=== PATIENT | female | born 1955 | race Caucasian/White ===

== ENCOUNTER → 2023-07-24 11:09 | Outpatient (REF) | payer MEDICARE, BC, SELFPAY | LOC: RAD 11:09 | PROVIDERS: ATTENDING PHYSICIAN Internal Medicine; FAMILY PHYSICIAN Family Medicine; REFERRING PHYSICIAN Internal Medicine Endocrinology, Diabetes & Metabolism | DX: M81.0 Age-related osteoporosis without current pathological fracture (principal) | CPT/HCPCS: 74221 ==

== ENCOUNTER 2023-09-07 19:24 | Emergency (ER) | payer MEDICARE, BC, SELFPAY ==
[2023-09-07 19:27] VITALS: BP 158/93
[2023-09-07 20:16] LABS: % Basophils 0.2 % (0-2); % Eosinophils 0.2 % (0-6); % Immature Granulocytes 0.2 % (0-0.5); % Lymphocytes 22.1 % (20.5-51.1); % Monocytes 5.9 % (1.7-9.3); % Neutrophils 71.4 % (42.2-75.2); Absolute Lymphocytes 1.4 10^3/uL (1.2-3.4); Absolute Monocytes 0.4 10^3/uL (0.1-0.6); Absolute Neutrophils 4.5 10^3/uL (1.4-6.5); Hematocrit 40.4 % (37.0-47.0); Hemoglobin 14.3 g/dL (12.0-16.0); Mean Corp Hgb Conc. 35.4 g/dL (33.0-37.0); Mean Corpuscular Hgb 31.2 pg (27.0-31.0); Mean Corpuscular Volume 88.2 fL (81.0-99.0); Nucleated Red Blood Cells % 0 %; Platelet Count 288 10^3/uL (130-400); Red Blood Cell Count 4.58 10^6/uL (4.20-5.40); Red Cell Dist. Width 13.8 % (11.5-14.5); White Blood Cell Count 6.3 10^3/uL (4.8-10.8)
[2023-09-07 20:35] LABS: ALT (SGPT) 21 U/L (0-35); AST (SGOT) 25 U/L (14-36); Albumin 5.1 g/dl (3.5-5.0); Alkaline Phosphatase 68 U/L (38-126); Blood Urea Nitrogen 18 mg/dl (7-17); Calcium 9.8 mg/dl (8.4-10.2); Carbon Dioxide 19 mmol/L (22-30); Chloride 102 mmol/L (98-107); Glucose 124 mg/dl (70-99); Sodium 137 mmol/L (135-145); Total Bilirubin 0.7 mg/dl (0.2-1.3); Total Protein 7.4 g/dl (6.3-8.2); eGFR > 60.00
[2023-09-07 20:41] LABS: NT-proBNP 85.7 pg/ml; Troponin I < 0.012 ng/ml
[2023-09-07 20:50] VITALS: BMI 23.3
--- NOTE | 2023-09-07 21:21 | ED.GENMED ---
History of Present Illness
General
Chief Complaint: Breathing Problem
Source: patient
Time Seen by Provider: 09/07/23 21:03
History of Present Illness
History of Present Illness:
68-year-old female brought to the emergency room by her for evaluation of upper abdominal discomfort, belching, subjective feeling of dyspnea. She has also noticed that she has not had her normal level of clarity over the past couple weeks.
She does take medical marijuana but denies alcohol or any recreational drug use. She does have a history of fibromyalgia and does take gabapentin. No known fever.
Past History
Past History
ED Past Medical History: Other
Social History
Alcohol: Occasional
Phy Exam
Physical Exam
Physical Exam:
General: Awake, Alert, Oriented X3. Somewhat bizarre affect. She is very restless and has difficulty answering relatively simple questions. Her helps answer questions for her.
Vitals: unremarkable
Head: Atraumatic
Eyes: Pupils equal, EOMI
Throat: Airway intact, no exudates
Neck: Trachea midline
Lungs: Clear and equal b/l
Heart: Regular rate, no murmurs
Abd: Soft, Nontender, No pulsatile mass
Neuro: Cranial nerves intact, muscle strength equal bilaterally, cerebellar exam normal
Skin: Warm, dry, no rash
Extremities: pulses equal b/l, no edema
Scores
Heart Failure Risk
Heart Failure Risk Score: Not Applicable
Course
Orders/Labs/Results
Orders:
Orders
09/07/23 19:37
Electrocardiogram (*1) Urgent
Reason for Study: Other
Other Reason for Exam: Respiratory Distress
EKG- Treatment ONCE
09/07/23 19:57
Alcohol Urgent
Complete Blood Count/With Diff Urgent
Comprehensive Metabolic Panel Urgent
Lipase Urgent
Comment: ADD ON
NT-proBNP Urgent
TSH Reflex To Free T4 Urgent
Comment: ADD ON
Troponin I Urgent
09/07/23 21:15
CT Head W/o Iv Contrast Urgent
Comment:
Reason For Exam: mild confusion
09/07/23 21:18
Add On- LAB Urgent
Tests Added?: tsh w reflex T4, lipase, alcohol level
CR Chest - 2 Views Urgent
Comment:
Reason For Exam: short of breath
09/07/23 22:17
Urinalysis Reflex To Culture Urgent
Date Specimen was Collected: 09/07/23
Time Specimen was Collected: 22:11
Urine Microscopic Reflex Cult Urgent
09/08/23 00:51
Mag Hydrox/Al Hydrox/Simeth [Maalox] 30 ml Phenobarb/Hyoscy/Atropine/Scop [] 10 ml Viscous Lidocaine 2% [Xylocaine Viscous Cup] 10 ml PO NOW
09/08/23 00:56
Mag Hydrox/Al Hydrox/Simeth [Maalox] 30 ml .ROUTE .STK-MED ONE
Phenobarb/Hyoscy/Atropine/Scop [] 10 ml .ROUTE .STK-MED ONE
Viscous Lidocaine 2% [Xylocaine Viscous Cup] 15 ml .ROUTE .STK-MED ONE
09/08/23 02:39
Sucralfate [Carafate] 1 gram PO NOW STA
Abnormal Lab Results
09/07/23 09/07/23
19:57 22:17
MCH 31.2 H pg
(27.0-31.0)
MPV 11.0 H fL
(7.4-10.4)
Carbon Dioxide 19 L mmol/L
(22-30)
BUN 18 H mg/dl
(7-17)
Creatinine 0.5 L mg/dL
(0.6-1.0)
Glucose 124 H mg/dl
(70-99)
Albumin 5.1 H g/dl
(3.5-5.0)
Urine Ketones 3+ A
(Negative)
Ur Occult Blood Reflex Trace A
(Negative)
Urine RBC 3-6 A /HPF
(0-2)
Urine Bacteria (Reflex) Few A
(Negative)
09/07/23 19:57
09/07/23 19:57
Vital Signs
Initial and Last Documented VS:
Initial Vital Signs
Temp Pulse Resp BP Pulse Ox
97.8 F 82 28 158/93 99
09/07/23 19:27 09/07/23 19:27 09/07/23 19:27 09/07/23 19:27 09/07/23 19:27
Last Documented Vital Signs
Temp Pulse Resp BP Pulse Ox
98.1 F 78 18 140/89 100
09/08/23 02:56 09/08/23 02:56 09/08/23 02:56 09/08/23 02:56 09/08/23 02:56
*Radiology
Radiology exam reviewed: radiology read reviewed
*Pulse Oximetry
Patient hypoxic: no
*EKG
Interpreted by ED Provider?: Yes
Heart Rate: 79
Rate: normal
Rhythm: sinus
[place]: normal axis
Interval: normal interval
QRS Pattern: normal QRS
Ischemia: no ischemia
*Lpn Interpretation
Rate: normal
Interpretation: normal
Rhythm: sinus
*Critical Care Note
Total Time (30-74mins, 75-104mins- exclusive of procedures): Not Applicable
ED Attending Note
-
Portions of this chart may have been created with voice recognition software.� Occasional wrong word or��sound alike� substitutions may have occurred due to the inherent limitations of voice recognition software.
Discharge Plan
Departure
Patient Disposition: Home (Routine Discharge)
Date of Disposition: 09/08/23
Time of Disposition: 02:20
Patient with high blood pressure during this ER visit?: No
Condition: Good
Discharge Problem:
Dyspnea, Gastroesophageal reflux disease
Instructions: Shortness of breath, Acid reflux and GERD in adults
Prescriptions:
New
pantoprazole [Protonix] 40 mg tablet,delayed release (DR/EC)
40 mg PO DAILY Qty: 30 0RF
sucralfate [Carafate] 1 gram tablet
1 g PO ACHS Qty: 60 0RF
Referrals:
Katlyn Santana MD [Active] -
Jay Avila DO [Family Provider] -
Interventions
Interventions:
*Risk Screen - Suicide Last Done: 09/07/23 19:27
*General Assessment Last Done: 09/07/23 21:10
*Neglect/Abuse Screening Last Done: 09/07/23 21:06
ED- Fall Risk Assessment Last Done: 09/07/23 20:51
*Nursing Disposition Last Done: 09/08/23 02:58
ED- Cardiac Assessment Last Done: 09/07/23 20:51
ED- Pulmonary Assessment Last Done: 09/07/23 20:51
Discharge Date and Time
Discharge Date/Time: 09/08/23 03:01
Print Language: CITIZEN OF [place]
[2023-09-07 21:45] LABS: Alcohol None Detected; Lipase 70 U/L (23-300)
[2023-09-07 22:16] LABS: TSH Reflex To Free T4 1.22 uIU/ml (0.47-4.68)
[2023-09-07 22:25] LABS: Urine Albumin Trace (Neg - Trace); Urine Bilirubin Negative (Negative); Urine Character Clear (Clear); Urine Color Yellow; Urine Glucose Negative (Negative); Urine Ketone 3+ (Negative); Urine Leukocyte Negative (Negative); Urine Nitrite Negative (Negative); Urine Occult Blood Trace (Negative); Urine Specific Gravity 1.015 (<1.030); Urine Urobilinogen Negative (Neg - 1+); Urine pH 6.5 (5.0-9.0)
[2023-09-07 22:32] LABS: Urine Bacteria Few (Negative); Urine White Cell 0-2 /HPF (0-5)
[2023-09-07 23:13] VITALS: BP 145/83
[2023-09-08] MEDS: MAALOX 50 PO (00:58)
[2023-09-08 01:00] VITALS: BP 136/90
[2023-09-08] MEDS: CARAFATE 1 GRAM PO (02:52)
[2023-09-08 02:56] VITALS: BP 140/89
== END 2023-09-08 03:01 | disposition home or self-care (01) ==
LOC: EMR 19:24
PROVIDERS: Student in an Organized Health Care Education/Training Program; EMERGENCY PHYSICIAN Emergency Medicine; FAMILY PHYSICIAN Family Medicine
DX: R06.09 Other forms of dyspnea (principal); K21.9 Gastro-esophageal reflux disease without esophagitis; M79.7 Fibromyalgia
CPT/HCPCS: 99285; 70450; 71046; 80053; 81003; 81015; 82077; 83690; 83880; 84443; 84484; 85025; 93005

== ENCOUNTER 2023-11-14 06:50 | Inpatient (IN) | payer MEDICARE, BC, SELFPAY ==
[2023-11-13 21:00] VITALS: BP 188/97
--- NOTE | 2023-11-13 21:01 | ED.GENMED ---
History of Present Illness
General
Chief Complaint: Psychiatric Problem
Source: patient
Exam Limitations: none
Time Seen by Provider: 11/13/23 20:48
Nursing documentation reviewed up to this point in time: agreed with
History of Present Illness
History of Present Illness:
68-year-old female presents emergency ferment due to manic behavior. EMS was called by family. She has tangential speech and is talking very fast. She is mentioning famous actors.
Past History
Past History
ED Past Medical History: Other
ED Past Surgical History: Other
Social History
Alcohol: Occasional
Phy Exam
Physical Exam
Physical Exam:
Physical Exam
General: no apparent distress, not acutely ill
Neck: supple. no meningeal signs. normal posterior pharynx
Heart: s1/s2 regular rate and rhythm, no murmur. equal radial
pulses.
HEENT: Pupils equal round reactive to light, EOMI
Lungs: no acute respiratory distress. clear bilaterally
Abdomen: normal bowel sounds. not tender. no CVAT
Neuro: alert and oriented. no focal neurological deficits cranial nerves II through XII intact
Skin: no rash
Psychiatric: well kept. interactive and cooperative, tangential speech, flight of ideas, grandiosity
Extremities: no edema. no calf tenderness. negative homans. good distal pulses
Course
Orders/Labs/Results
Orders:
Orders
11/13/23 20:58
1:1 Observation - Suicide/ Violent Behavior As Directed
PSYCHIATRY CONSULT Routine
Consulting Provider: Talia Tavares
Was physician already notified: Yes
Reason for consult: manic episode
Urine Drug Abuse Screen Urgent
11/13/23 20:59
Crisis Consult Routine
Reason for Consult: manic episode
11/13/23 21:28
Acetaminophen Urgent
Alcohol Urgent
Complete Blood Count/With Diff Urgent
Comprehensive Metabolic Panel Urgent
Salicylate Urgent
Abnormal Lab Results
11/13/23
21:28
MPV 10.8 H fL
(7.4-10.4)
Lymphocytes % 19.7 L %
(20.5-51.1)
BUN 18 H mg/dl
(7-17)
Glucose 118 H mg/dl
(70-99)
Albumin 5.1 H g/dl
(3.5-5.0)
Salicylates < 1.0 L mg/dl
(2.0-20.0)
Acetaminophen < 10 L ug/ml
(10-30)
11/13/23 21:28
11/13/23 21:28
Vital Signs
Initial and Last Documented VS:
Initial Vital Signs
Temp Pulse Resp BP Pulse Ox
98.8 F 100 22 188/97 100
11/13/23 21:00 11/13/23 21:00 11/13/23 21:00 11/13/23 21:00 11/13/23 21:00
Last Documented Vital Signs
Temp Pulse Resp BP Pulse Ox
98.8 F 100 24 188/97 100
11/13/23 21:00 11/13/23 21:00 11/13/23 22:00 11/13/23 21:00 11/13/23 21:00
MDM/Problems Addressed
Differential Diagnosis Includes:
Manic episode
MDM/Problems Addressed:
68-year-old female with manic episode, 302 filed by family
*Pulse Oximetry
Patient hypoxic: no
*Critical Care Note
Total Time (30-74mins, 75-104mins- exclusive of procedures): Not Applicable
Patient Management
Social determinants of health affecting care: Living situation
Discussion with other providers: Cash Applications Representative (Crisis and psychiatry)
ED Attending Note
-
Portions of this chart may have been created with voice recognition software.� Occasional wrong word or��sound alike� substitutions may have occurred due to the inherent limitations of voice recognition software.
Discharge Plan
Departure
Patient Disposition: Psych Facility
Date of Disposition: 11/13/23
Time of Disposition: 22:23
Patient Status:: 302
Patient with high blood pressure during this ER visit?: Yes
Condition: Good
Discharge Problem:
Bipolar affective disorder, manic
Prescriptions:
No Action
pantoprazole [Protonix] 40 mg tablet,delayed release (DR/EC)
40 mg PO DAILY Qty: 30 0RF
sucralfate [Carafate] 1 gram tablet
1 g PO ACHS Qty: 60 0RF
Referrals:
UNKNOWN - PT DOES,NOT KNOW [Family Provider] -
Interventions
Interventions:
*Risk Screen - Suicide Last Done: 11/13/23 21:03
*General Assessment Last Done: 11/13/23 21:00
*Neglect/Abuse Screening Last Done: 11/13/23 21:03
ED- Fall Risk Assessment Last Done: 11/13/23 21:57
*ED COVID-19 Vaccine History Last Done: 11/13/23 21:00
ED-Psychological Assessment Last Done: 11/13/23 21:57
Discharge Date and Time
Print Language: KITTITIAN
[2023-11-13 21:40] LABS: % Basophils 0.1 % (0-2); % Eosinophils 0.1 % (0-6); % Immature Granulocytes 0.3 % (0-0.5); % Lymphocytes 19.7 % (20.5-51.1); % Monocytes 6.7 % (1.7-9.3); % Neutrophils 73.1 % (42.2-75.2); Absolute Lymphocytes 1.5 10^3/uL (1.2-3.4); Absolute Monocytes 0.5 10^3/uL (0.1-0.6); Absolute Neutrophils 5.4 10^3/uL (1.4-6.5); Hematocrit 38.5 % (37.0-47.0); Hemoglobin 13.5 g/dL (12.0-16.0); Mean Corp Hgb Conc. 35.1 g/dL (33.0-37.0); Mean Corpuscular Hgb 29.7 pg (27.0-31.0); Mean Corpuscular Volume 84.8 fL (81.0-99.0); Mean Platelet Volume 10.8 fL (7.4-10.4); Nucleated Red Blood Cells % 0 %; Platelet Count 290 10^3/uL (130-400); Red Blood Cell Count 4.54 10^6/uL (4.20-5.40); Red Cell Dist. Width 14.5 % (11.5-14.5); White Blood Cell Count 7.4 10^3/uL (4.8-10.8)
[2023-11-13 21:55] LABS: ALT (SGPT) 20 U/L (0-35); AST (SGOT) 27 U/L (14-36); Acetaminophen < 10 ug/ml (10-30); Albumin 5.1 g/dl (3.5-5.0); Alkaline Phosphatase 60 U/L (38-126); Blood Urea Nitrogen 18 mg/dl (7-17); Calcium 9.8 mg/dl (8.4-10.2); Carbon Dioxide 24 mmol/L (22-30); Chloride 100 mmol/L (98-107); Estimated Creatinine Clearance 50 ml/min; Glucose 118 mg/dl (70-99); Salicylate < 1.0 mg/dl (2.0-20.0); Sodium 141 mmol/L (135-145); Total Bilirubin 0.6 mg/dl (0.2-1.3); Total Protein 7.3 g/dl (6.3-8.2); eGFR > 60.00
[2023-11-13 21:57] LABS: Alcohol None Detected
[2023-11-13 22:50] LABS: Urine Albumin 1+ (Neg - Trace); Urine Bilirubin 1+ (Negative); Urine Character Clear (Clear); Urine Color Amber; Urine Glucose Negative (Negative); Urine Ketone 3+ (Negative); Urine Leukocyte Trace (Negative); Urine Nitrite Negative (Negative); Urine Occult Blood Trace (Negative); Urine Specific Gravity 1.025 (<1.030); Urine Urobilinogen Negative (Neg - 1+)
[2023-11-13 23:13] LABS: Amphetamines Negative (Negative); Barbiturates Negative (Negative); Marijuana Positive (Negative)
[2023-11-13 23:14] LABS: Benzodiazepines Negative (Negative); Buprenorphine Negative (Negative); Cocaine Negative (Negative); Methadone Negative (Negative); Methamphetamines Negative (Negative); Opiates Negative (Negative); Phencyclidine Negative (Negative); Tricyclic Antidepressants Negative (Negative)
[2023-11-13 23:18] LABS: Urine Bacteria Few (Negative); Urine Mucus Moderate; Urine Red Blood Cell 0-2 /HPF (0-2); Urine Squamous Cell 16-20 /LPF (Few)
[2023-11-14] VITALS (10 sets, daily range): BP systolic 96–146; BP diastolic 59–92
[2023-11-14 01:17] LABS: TSH 2.12 uIU/ml (0.47-4.68)
--- NOTE | 2023-11-14 05:59 | ED.ADDNOTE ---
ED Addendum
ED Addendum
ED Addendum Note:
Patient evaluated by myself. She is brought to the ED by her son and daughter with concern for change in mental status, agitation and confusion, new onset.
She does have history of depression, more so over the past month but no episodes of labile emotions, no previous episodes of sanchez, confusion.
Prior history of breast cancer, hypothyroidism, [id number] diabetes.
She does have medical marijuana card and remote history of alcohol use but no recent use and no other drug use.
Patient is awake and alert, quite agitated, pressured speech, somewhat nonsensical speech, follows a few simple commands.
She is afebrile. Mildly hypertensive.
Thin build but overall appears euvolemic.
No focal neurodeficits. No tremor. Neck is supple without meningismus.
Thus far labs are unremarkable. Urinalysis is not consistent with UTI. CT of the head is unremarkable. TSH is normal.
Urine drug screen positive only for THC consistent with history. EtOH is negative.
Concern for acute psychosis/sanchez versus metabolic encephalopathy.
Family filed 302 petition but this was declined by mental health delegate.
I placed a consult for telepsychiatry evaluation.
11/14/2023 0603 AM
Patient has been evaluated by psychiatrist whom I have spoken with. She does not believe patient's condition is psychiatric in nature and suspects a medical/metabolic disorder.
Patient continues with some agitation, pressured speech but remains confused. Able to follow some simple commands.
Psychiatrist recommends admitting medically for further evaluation, recommends MRI of the brain.
Will admit to hospitalist service.
--- NOTE | 2023-11-14 06:20 | EDRN ---
Daughter Sindy's phone number [phone]
--- NOTE | 2023-11-14 06:34 | HPS.HSE ---
Family Physician
-
Family Physician: NOT KNOW UNKNOWN - PT DOES
Chief Complaint
-
Mental Status Change
History of Present Illness
Patient is a 68y F with PMH significant for fibromyalgia, IBS, major depression and hypothyroidism who presents to ED for evaluation of mental status change. Patient brought to ED by her family who note agitation, confusion and hyperactivity
which is very new / acute. No known recent illness, med changes, etc per family. They received a call from a different family member to check on the patient and found her in this state.
Patient was home alone. her has been out of town for approximately 24 hours. One week ago, patient was normal and was caring for grandchildren, etc.
Patient was evaluated in the ED by telepsych who felt that this did not represent a primary psychiatric issue. Medical admission was recommended.
At the time of my examination patient is lying in he dark. She wakes promptly to verbal stimuli. She answers questions correctly (oriented x 3).
Once she begins speaking she does not stop and will continue to produce random thoughts, random words, vulgarities, etc.
She does not provide further insight into her condition however, When asked about any new meds, substance use / abuse, etc she responds vaguely / unhelpfully. 'I don't know, did I?' 'You would like to know, wouldn't you?'
Review of available records shows long history of establish major depression diagnosis per her PCP.
Over the past several months specifically the PCP has encourage formal psych evaluation and has even scheduled appointments for the patient. However, it appears that patient has not followed through on those appointments / recommendations.
Review of PDMP reveals prescriptions for clonazepam 0.5mg tablets from a [facility] in [place]. Two prescriptions for #270 pills each were filled in August and November 2022. A more recent prescription was filled 10/22/23.
External med Summary / PCP notes also indicate an ED visit in [place] in May 2023 for 'depression / anxiety'.
Medical History
Past Medical History
Past Medical History: Reports Other
Additional Past Medical History:
Right Breast Cancer
Hypothyroidism
Major Depression
Fibromyalgia
IBS
Past Surgical History: Reports Other
Additional Past Surgical History:
Right Lumpectomy (x 2)
Sinus Surgery
Thyroidectomy
Abdominal Surgery / Hernia Repair
Social History
Unable to obtain full social history at this time due to: Other (Patient answers unclear / unreliable. Family notes prior history of alcohol use - but none in some time.)
Drug: Other (Patient has medical marijuana card and uses marijuana pen regularly.)
Family History
Family History: Unable to Obtain
Allergies / Home Medications
Allergies reflects when Allergies were last updated in [facility].
Home Medications with original date entered in [facility]
Allergy/Medication List:
Allergies
Allergy/AdvReac Type Severity Reaction Status Date / Time
latex Allergy Rash Verified 11/13/23 21:08
Sulfa (Sulfonamide Allergy Unknown Verified 11/13/23 21:08
Antibiotics)
Home Medications
levothyroxine 100 mcg tablet (Synthroid) 100 mcg PO DAILY 11/14/23
metformin 500 mg tablet 500 mg PO DAILY 11/14/23
Med list seems incomplete (see PDMP inquiry). Formal med rec with pharmacy in AM would be beneficial.
Review of Systems
-
Unable to obtain full review of systems at this time due to: Other (Patient does not answer reliably.)
Physical Exam
Vital Signs
Vital Signs
Temp Pulse Resp BP Pulse Ox
98.8 F 87 20 143/72 99
11/13/23 21:00 11/14/23 06:20 11/14/23 06:20 11/14/23 06:20 11/14/23 06:20
Physical Exam
General: Other (68y F in lateral recumbent position. Opens eyes / answers questions when prompted - though not always appropriately.)
HEENT: Moist mucous membranes and PERRLA
Respiratory: Clear; No Wheezes, Rales or Rhonchi
Cardiac: S1/S2 and Regular Rhythm; No Murmur
GI: Soft, Non Tender, Non Distended and Normal Bowel Sounds
Musculoskeletal: No Clubbing, No Cyanosis and No Edema
Neuro: Other (Patient is able to answer orientation questions correctly. Otherwise pressured speech, profanity, flight of ideas.)
Laboratory Results
-
11/13/23 21:28
11/13/23 21:
Laboratory Results
Total Bilirubin 0.6 mg/dl (0.2-1.3) 11/13/23:28
AST 27 U/L (14-36) 11/13/23:
ALT 20 U/L (0-35) 11/13/23:28
Alkaline Phosphatase 60 U/L (38-126) 11/13/23:
Impression/Plan
-
A/P: Patient is a 68y F with PMH significant for breast cancer, hypothyroidism and major depression who presents to ED with her children for evaluation of mental status change.
Mental Status Change
- Admit for further evaluation and treatment.
- Patient is manic / hyperactive / pressured speech / inappropriate / etc. Abrupt change per family.
- (returning to town today) may be able to provide further insight.
- Note history of depression per PCP and specifically ED visit in May in [place] and recent discussion with PCP re: Psych evaluation.
- Labs and imaging in the ED are unremarkable. No clear metabolic anomaly / process to explain current symptoms.
- ? BZD withdrawal given Rx data in PDMP and current UDS (negative for benzos).
- Follow MSAS scale and treat with BZDs as needed for evident symptoms of withdrawal.
- Formal Psych evaluation here.
- Will check MRI brain for completeness.
- Follow for any changes in mental state / improved communication / etc.
- Additional history, formal med rec, etc will be helpful.
Hypothyroidism
- s/p thyroidectomy.
- Will hold T4 supplementation for now pending Free T4 assay.
Impaired Fasting Glucose
- Records indicate that patient was very recently started on metformin (10/09/23) for 'pre-diabetes'.
- Will hold this for now.
- Follow glucose and cover with SSI if needed.
- Check A1C.
History of Breast Cancer
- s/p lumpectomy x 2 - both in 2008.
DVT Prophylaxis: Lovenox
Code Status: Full
--- NOTE | 2023-11-14 07:30 | W.PN.HOSP.TC ---
Today's Communication/Plan
-
see A/P
Assessment / Plan
Assessment / Plan
HPI: 68 yo F with PMH significant for fibromyalgia, IBS, major depression and hypothyroidism who presented to ED for evaluation of mental status change. Patient brought to ED by her family who note agitation, confusion and hyperactivity which is
very new / acute. No known recent illness, med changes, etc per family. They received a call from a different family member to check on the patient and found her in this state.
Patient was home alone. her has been out of town for approximately 24 hours. One week ago, patient was normal and was caring for grandchildren, etc.
Patient was evaluated in the ED by telepsych who felt that this did not represent a primary psychiatric issue. Medical admission was recommended.
On exam, she answered questions correctly (oriented x 3).
Once she begins speaking she does not stop and will continue to produce random thoughts, random words, vulgarities, etc.
She does not provide further insight into her condition however, when asked about any new meds, substance use / abuse, etc she responds vaguely / unhelpfully. 'I don't know, did I?' 'You would like to know, wouldn't you?'
Review of available records shows long history of establish major depression diagnosis per her PCP.
Over the past several months specifically the PCP has encourage formal psych evaluation and has even scheduled appointments for the patient. However, it appears that patient has not followed through on those appointments / recommendations.
Review of PDMP reveals prescriptions for clonazepam 0.5mg tablets from a [facility] in [place]. Two prescriptions for #270 pills each were filled in August and November 2022. A more recent prescription was filled 10/22/23.
External med Summary / PCP notes also indicate an ED visit in [place] in May 2023 for 'depression / anxiety'.
A/P:
# Mental Status Change with sanchez / hyperactive and pressured speech. Abrupt change per family.
Note history of depression per PCP and specifically ED visit in May in [place] and recent discussion with PCP re: Psych evaluation.
Labs and imaging in the ED are unremarkable. No clear metabolic anomaly / process to explain current symptoms.
? BZD withdrawal given Rx data in PDMP and current UDS (negative for benzos).
Follow MSAS scale and treat with BZDs as needed for evident symptoms of withdrawal.
Formal Psych evaluation.
Will check MRI brain for completeness.
Follow for any changes in mental state / improved communication / etc.
Additional history, formal med rec, etc will be helpful.
# Hypothyroidism
s/p thyroidectomy.
TSH 2.12, check FT4
Would hold T4 supplementation for now pending Free T4 assay.
# Impaired Fasting Glucose
Records indicate that patient was very recently started on metformin (10/09/23) for 'pre-diabetes'.
Will hold this for now.
Follow glucose and cover with SSI if needed.
Check A1C.
# History of Breast Cancer s/p lumpectomy x 2 - both in 2008.
DVT Prophylaxis: Lovenox SQ
Code Status: Full
Anticipated Discharge: > 48 hours
Subjective/Interval History
-
Date of Service: November 14, 2023
Objective Data
-
Labs:
Laboratory Results
11/13/23
21:28
WBC 7.4
Hgb 13.5
Hct 38.5
Plt Count 290
Sodium 141
Potassium 4.0
Chloride 100
Carbon Dioxide 24
BUN 18 H
Creatinine 0.7
Glucose 118 H
Calcium 9.8
Total Bilirubin 0.6
AST 27
ALT 20
Alkaline Phosphatase 60
Vital Signs:
Vital Signs
Temp Pulse Resp BP Pulse Ox
37.1 C 87 20 143/72 99
11/13/23 21:00 11/14/23 06:20 11/14/23 06:20 11/14/23 06:20 11/14/23 06:20
Review of Systems
-
Unable to obtain full review of systems at this time due to: Acuity
Physical Exam
-
General: Well Developed, Well Nourished, No Apparent Distress, Comfortable and Conversant (pressured speech, tangential thought); Negative Respiratory Distress
HEENT: Normocephalic, Atraumatic, Nose Appears Normal and Ears Appear Normal; Negative Oxygen
Respiratory: Clear to Auscultation and Non Labored Respirations; Negative Accessory Resp Muscle Use
Cardiac: Regular Rhythm and S1/S2
GI: Soft, Nontender, Nondistended and Normal Bowel Sounds
Skin: Warm and Dry
Neuro: Awake
Psych: Calm; Negative Intact Judgement/Insight
Data Reviewed
-
Labs: Labs Reviewed by me
[2023-11-14 08:30] LABS: Free T4 1.99 ng/dl (0.78-2.19)
[2023-11-14 08:49] LABS: Glucose - Point of Care 104 mg/dl (70-99)
[2023-11-14] MEDS: ATIVAN 1 MG IV ×3 (09:31→23:00)
[2023-11-14] MEDS: FOLVITE 1 MG PO (09:31)
[2023-11-14] MEDS: THIAMINE INJECTION 200 MG IV ×2 (09:31→20:19)
[2023-11-14] MEDS: NSS 1000 IV ×2 (09:41→20:18)
--- NOTE | 2023-11-14 11:16 | PTCARENOTE ---
Patient admitted to IMU with diagnosis of mental status change. Patient was anxious, angry, restless, and hallucinating upon arrival to the unit. Patient was having visual hallucinations, one named Tony. Patient unable to answer questions, flight
of ideas. Refusing to answer questions about drug use at home. Patient on 1:1 for suicide as per doctors orders. Room assessed for safety, unnecessary equipment, cables removed from room. Patient is NPO at this time.
[2023-11-14 11:39] LABS: Glucose - Point of Care 90 mg/dl (70-99)
--- NOTE | 2023-11-14 14:01 | W.PN.UPDATE ---
Update Note
Progress Note Update
Psych attempted to see patient twice today. first this morning, she was sleeping and unable to cooperate with assessment and now she is at her MRI. will see her first in the morning. primary team notified. team can call me in the interim with
questions if needed.
--- NOTE | 2023-11-14 14:23 | PTCARENOTE ---
Patients MSAS has been 4-9 so far this shift. Patient has received two doses of IV Ativan 1mg. Patient was able to go to MRI with RN and 1:1. Patient stated that she did not want me to give information to daughter Sindy. Information was given to
for MRI clearance.
--- NOTE | 2023-11-14 15:58 | CM ---
CM to follow up with discharge planning assessment when appropriate.
[2023-11-14 16:44] LABS: Glucose - Point of Care 105 mg/dl (70-99)
[2023-11-14] MEDS: LOVENOX 40 MG SC (17:35)
--- NOTE | 2023-11-14 17:53 | PTCARENOTE ---
Patient is now calm, oriented to person, place and time. Eating dinner. Denying pain when asked. Patient talking to staff but has episodes of crying when she talks about family and her life. Patient stated that she doesnt want nurse to update her
children at this time, she will contact them when her comes to visit [facility].
--- NOTE | 2023-11-14 18:08 | PTCARENOTE ---
Patients necklace and two bracelets removed for MRI. All items placed in a ziplock bag and labeled with patient sticker. Placed in personal belongings bag that is in cabinet in patients room.
[2023-11-14] MEDS: ATIVAN 1 MG PO (20:39)
--- NOTE | 2023-11-14 20:40 | PTCARENOTE ---
Patient talking in circles. worried about her mother and brother 'bg'. Often talking about her , who was recently in another state. Pt spoken to in calm reassuring voice, encouraged to watch TV to help relax. MSAS maintained, pt given 1mg
PO Ativan for MSAS of 6. Suicide 1:1 maintained per MD orders.
[2023-11-14 21:01] LABS: Glucose - Point of Care 128 mg/dl (70-99)
[2023-11-14] MEDS: NSS (PRESERVATIVE FREE) 0.5 ML IV (23:00)
[2023-11-15] VITALS (13 sets, daily range): BP systolic 93–160; BP diastolic 50–109; BMI 18.3
[2023-11-15 05:24] LABS: Hematocrit 36.6 % (37.0-47.0); Hemoglobin 12.4 g/dL (12.0-16.0); Mean Corp Hgb Conc. 33.9 g/dL (33.0-37.0); Mean Corpuscular Hgb 29.6 pg (27.0-31.0); Mean Corpuscular Volume 87.4 fL (81.0-99.0); Mean Platelet Volume 11.3 fL (7.4-10.4); Platelet Count 263 10^3/uL (130-400); Red Blood Cell Count 4.19 10^6/uL (4.20-5.40); Red Cell Dist. Width 14.8 % (11.5-14.5); White Blood Cell Count 5.3 10^3/uL (4.8-10.8)
[2023-11-15 05:47] LABS: ALT (SGPT) 17 U/L (0-35); AST (SGOT) 27 U/L (14-36); Albumin 3.9 g/dl (3.5-5.0); Alkaline Phosphatase 35 U/L (38-126); Blood Urea Nitrogen 22 mg/dl (7-17); Calcium 8.8 mg/dl (8.4-10.2); Carbon Dioxide 26 mmol/L (22-30); Chloride 106 mmol/L (98-107); Direct Bilirubin 0.2 mg/dl (0.0-0.4); Estimated Creatinine Clearance 59 ml/min; Glucose 97 mg/dl (70-99); Potassium 4.8 mmol/L (3.5-5.1); Sodium 142 mmol/L (135-145); Total Bilirubin 0.5 mg/dl (0.2-1.3); eGFR > 60.00
[2023-11-15] MEDS: NSS 1000 IV (05:47)
--- NOTE | 2023-11-15 07:57 | W.PN.HOSP.TC ---
Today's Communication/Plan
-
see A/P
Assessment / Plan
Assessment / Plan
HPI: 68 yo F with PMH significant for fibromyalgia, IBS, major depression and hypothyroidism who presented to ED for evaluation of mental status change. Patient brought to ED by her family who note agitation, confusion and hyperactivity which is
very new / acute. No known recent illness, med changes, etc per family. They received a call from a different family member to check on the patient and found her in this state.
Patient was home alone. her has been out of town for approximately 24 hours. One week ago, patient was normal and was caring for grandchildren, etc.
Patient was evaluated in the ED by telepsych who felt that this did not represent a primary psychiatric issue. Medical admission was recommended.
On exam, she answered questions correctly (oriented x 3).
Once she begins speaking she does not stop and will continue to produce random thoughts, random words, vulgarities, etc.
She does not provide further insight into her condition however, when asked about any new meds, substance use / abuse, etc she responds vaguely / unhelpfully. 'I don't know, did I?' 'You would like to know, wouldn't you?'
Review of available records shows long history of establish major depression diagnosis per her PCP.
Over the past several months specifically the PCP has encourage formal psych evaluation and has even scheduled appointments for the patient. However, it appears that patient has not followed through on those appointments / recommendations.
Review of PDMP reveals prescriptions for clonazepam 0.5mg tablets from a [facility] in [place]. Two prescriptions for #270 pills each were filled in August and November 2022. A more recent prescription was filled 10/22/23.
External med Summary / PCP notes also indicate an ED visit in [place] in May 2023 for 'depression / anxiety'.
A/P:
# Mental Status Change with sanchez / hyperactive and pressured speech. Abrupt change per family.
Note history of depression per PCP and specifically ED visit in May in [place] and recent discussion with PCP re: Psych evaluation.
Labs and imaging in the ED are unremarkable. No clear metabolic anomaly / process to explain current symptoms.
? BZD withdrawal given Rx data in PDMP and current UDS negative for benzos.
Follow MSAS scale and treat with BZDs as needed for evident symptoms of withdrawal.
MRI brain unrevealing.
Pending formal Psych evaluation.
Follow for any changes in mental state / improved communication / etc.
# Hypothyroidism
s/p thyroidectomy.
TSH 2.12, FT4 at 1.99
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
# Impaired Fasting Glucose
Records indicate that patient was very recently started on metformin (10/09/23) for 'pre-diabetes'.
Will hold this for now.
Follow glucose and cover with SSI if needed.
Follow A1C.
# History of Breast Cancer s/p lumpectomy x 2 - both in 2008.
DVT Prophylaxis: Lovenox SQ
Code Status: Full
updated on the phone
Anticipated Discharge: 24 - 48 hours
Subjective/Interval History
-
Date of Service: November 15, 2023
Objective Data
-
Labs:
Laboratory Results
11/15/23
04:41
WBC 5.3
Hgb 12.4
Hct 36.6 L
Plt Count 263
Sodium 142
Potassium 4.8
Chloride 106
Carbon Dioxide 26
BUN 22 H
Creatinine 0.6
Glucose 97
Calcium 8.8
Total Bilirubin 0.5
AST 27
ALT 17
Alkaline Phosphatase 35 L
Vital Signs:
Vital Signs
Temp Pulse Resp BP Pulse Ox
36.9 C 105 17 117/99 99
11/15/23 02:59 11/15/23 06:00 11/15/23 06:00 11/15/23 06:00 11/15/23 06:00
I&O
11/14/23 11/15/23 11/16/23
06:59 06:59 06:59
Intake Total 2320 / 2320
Output Total 825 / 825
Balance 1495 / 1495
Review of Systems
-
All other systems: Reviewed and negative
Physical Exam
-
General: Well Developed, Well Nourished, No Apparent Distress, Comfortable and Conversant; Negative Respiratory Distress
HEENT: Normocephalic, Atraumatic, Nose Appears Normal and Ears Appear Normal; Negative Oxygen
Respiratory: Clear to Auscultation and Non Labored Respirations; Negative Accessory Resp Muscle Use
Cardiac: Regular Rhythm and S1/S2
GI: Soft, Nontender, Nondistended and Normal Bowel Sounds
Skin: Warm and Dry
Neuro: Awake
Psych: Calm
Data Reviewed
-
MRI: Report Reviewed by me
Labs: Labs Reviewed by me
--- NOTE | 2023-11-15 08:03 | PTCARENOTE ---
Pt AAOx3 NSS at 100ml hr. Maintained on 1:1. NSR. On RA at 96%. Awaiting Psych consult.
[2023-11-15 08:07] LABS: Glucose - Point of Care 94 mg/dl (70-99)
[2023-11-15] MEDS: SYNTHROID 100 MCG PO (08:48)
[2023-11-15] MEDS: THIAMINE INJECTION 200 MG IV ×2 (08:48→19:16)
[2023-11-15] MEDS: FOLVITE 1 MG PO (08:48)
--- NOTE | 2023-11-15 09:33 | PTOTSP ---
SPEECH THERAPY SWALLOW EVALUATION:
Patient exhibits grossly functional oropharyngeal swallow at this time. No history of dysphagia noted. Patient remains at risk for aspiration given confusion. Currently breathing comfortably on room air, WBC WNL. No CXR available. Recommend Regular
texture solids, thin liquids. Medications whole with liquid, one at a time. General aspiration precautions. Skilled ST services for swallow therapy are not indicated at this time.
Patient exhibits impaired cognitive communication skills including deficits in attention and insight. MRI currently negative for acute findings. ST to follow and complete Cognitive Communication evaluation, pending formal Psych Evaluation.
RECOMMEND:
1) Regular texture diet, thin liquids
2) Medications whole with liquid, one at a time
3) General aspiration precautions
4) No skilled ST services for swallow therapy are indicated at this time; ST to follow for Cognitive Communication Evaluation pending formal Psych Evaluation
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
[2023-11-15 12:59] LABS: Glycohemoglobin (HgbA1c) 5.7 % (4.0-5.6)
[2023-11-15] MEDS: NEURONTIN 300 MG PO (14:01)
[2023-11-15 15:19] LABS: Glucose - Point of Care 139 mg/dl (70-99)
[2023-11-15] MEDS: NSS IV (16:09)
[2023-11-15 17:08] LABS: Glucose - Point of Care 110 mg/dl (70-99)
[2023-11-15] MEDS: LOVENOX 40 MG SC (17:58)
--- NOTE | 2023-11-15 18:35 | PTCARENOTE ---
Tech sitting with 1:1 stated pt eluded to sucidal ideation she said 'If I really wanted to I know how I would' partner asked 'would what' . Pt stared ranting about everything. Pt talks about everything and anything some things make no sense
--- NOTE | 2023-11-15 19:25 | PTCARENOTE ---
Pt resting comfortably in bed, presents with rambling speech. Pt goes from tearful to laughing very quickly and does not seem to wait for response before continuing the conversation. Pt c/o generalized pain which she says in d/t fibromyalgia. Pt
tearfully states 'I guess I didn't realize how much the marijuana was helping my pain', but quickly moves on from the topic to plainly state that her she has 'always been a hypochondriac.' 1:1 present to ensure patient safety. IV patent in R
forearm. VSS at this time.
[2023-11-15] MEDS: NEURONTIN 600 MG PO (21:13)
[2023-11-15] MEDS: ABILIFY 5 MG PO (21:13)
[2023-11-15 22:03] LABS: Glucose - Point of Care 120 mg/dl (70-99)
[2023-11-16] VITALS (8 sets, daily range): BP systolic 131–172; BP diastolic 60–101; BMI 18.1
--- NOTE | 2023-11-16 00:24 | PTCARENOTE ---
Pt requesting ativan to 'get an hour of sleep'. This RN educated pt that ativan is not ordered for sleep. Pt does not meet MSAS criteria to receive ativan at this time. When questioned about usual sleep habits, pt states that she does not usually
sleep until 6am as this is 'her pattern'.
[2023-11-16] MEDS: SYNTHROID 100 MCG PO (06:33)
[2023-11-16] MEDS: THIAMINE INJECTION 200 MG IV ×2 (08:04→21:01)
[2023-11-16] MEDS: NEURONTIN 300 MG PO (08:04)
[2023-11-16] MEDS: FOLVITE 1 MG PO (08:04)
[2023-11-16 08:09] LABS: Glucose - Point of Care 112 mg/dl (70-99)
--- NOTE | 2023-11-16 09:35 | W.PN.HOSP.TC ---
Today's Communication/Plan
-
Stable for MedSurg
Assessment / Plan
Assessment / Plan
HPI: 68 yo F with PMH significant for fibromyalgia, IBS, major depression and hypothyroidism who presented to ED for evaluation of mental status change. Patient brought to ED by her family who note agitation, confusion and hyperactivity which is
very new / acute. No known recent illness, med changes, etc per family. They received a call from a different family member to check on the patient and found her in this state.
Patient was home alone. her has been out of town for approximately 24 hours. One week ago, patient was normal and was caring for grandchildren, etc.
Patient was evaluated in the ED by telepsych who felt that this did not represent a primary psychiatric issue. Medical admission was recommended.
On exam, she answered questions correctly (oriented x 3).
Once she begins speaking she does not stop and will continue to produce random thoughts, random words, vulgarities, etc.
She does not provide further insight into her condition however, when asked about any new meds, substance use / abuse, etc she responds vaguely / unhelpfully. 'I don't know, did I?' 'You would like to know, wouldn't you?'
Review of available records shows long history of establish major depression diagnosis per her PCP.
Over the past several months specifically the PCP has encourage formal psych evaluation and has even scheduled appointments for the patient. However, it appears that patient has not followed through on those appointments / recommendations.
Review of PDMP reveals prescriptions for clonazepam 0.5mg tablets from a [facility] in [place]. Two prescriptions for #270 pills each were filled in August and November 2022. A more recent prescription was filled 10/22/23.
External med Summary / PCP notes also indicate an ED visit in [place] in May 2023 for 'depression / anxiety'.
A/P:
# Mental Status Change with sanchez / hyperactive and pressured speech. Abrupt change per family.
Note history of depression per PCP and specifically ED visit in May in [place] and recent discussion with PCP re: Psych evaluation.
Labs and imaging in the ED are unremarkable. No clear metabolic anomaly / process to explain current symptoms.
? BZD withdrawal given Rx data in PDMP and current UDS negative for benzos.
Follow MSAS scale and treat with BZDs as needed for evident symptoms of withdrawal.
MRI brain unrevealing.
Appreciate psychiatry input, recommend trial of Abilify 5 mg at bedtime, resume Neurontin 300 mg a.m., 600 mg at bedtime
Do not resume Effexor
No need for involuntary commitment, but do recommend inpatient psych
# Hypothyroidism
s/p thyroidectomy.
TSH 2.12, FT4 at 1.99
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
# Impaired Fasting Glucose
Records indicate that patient was very recently started on metformin (10/09/23) for 'pre-diabetes'.
Holding metformin, continue carb controlled diet, sliding scale insulin
A1C 5.7
# History of Breast Cancer s/p lumpectomy x 2 - both in 2008.
DVT Prophylaxis: Lovenox SQ
Code Status: Full
Total time spent to see the patient on the floor, examine the patient, review data and lab results, discuss treatment plan with patient, nursing staff around 39 minutes.
Physical Exam
General: Thin, no acute distress
HEENT: Normocephalic, Atraumatic, EOMI, MMM
Respiratory: Clear to Auscultation bilaterally
Cardiac: Normal S1/S2, Regular Rate and Rhythm
GI: Soft, Nontender, Nondistended, Normal Bowel Sounds
Extremities: No Clubbing, Cyanosis, or Edema
Neuro: Nonfocal/Grossly Intact
Psych: Elevated mood
Derm: No Visible lesions
Anticipated Discharge: Within 24 hours
Subjective/Interval History
-
Date of Service: November 16, 2023
Patient appears in good spirits today. No visual hallucinations, no audio hallucinations. No fever, no vomiting.
Objective Data
-
Vital Signs:
Vital Signs
Temp Pulse Resp BP Pulse Ox
98.7 F 72 16 153/93 98
11/16/23 08:11 11/16/23 06:01 11/16/23 06:01 11/16/23 06:01 11/15/23 20:35
I&O
11/15/23 11/16/23 11/17/23
06:59 06:59 06:59
Intake Total 2320 / 2320 1200 / 1200
Output Total 825 / 825
Balance 1495 / 1495 1200 / 1200
[2023-11-16 11:49] LABS: Glucose - Point of Care 120 mg/dl (70-99)
--- NOTE | 2023-11-16 13:42 | CM ---
Patient with Dx Mental Status Change with sanchez. Tox screen + for THC. Receiving IV Abilify, gabapentin. Psych Consult noted; recommend PHP program.
Met with patient who resides with her in a 2 story house with 2 ROSA.
The patient has been independent in ADLs and ambulation without using an assistive device.
Patient states she has a service dog and did not elaborate further.
Her only DME is a w/c.
Prior VN - cannot remember agency.
No prior SNF.
PCP - Dr Avial
Pharmacy - [facility]
Message to Dr Byers; which PHP program do you want patient to go to?
Discussed with Matias from [facility]; can try [facility] dual diagnosis program, [facility] dual diagnosis program. Dual Diagnosis Psych and possibly substance use. They may want patient to call for screening.
Plan follow up with patient about PHP programs.
[2023-11-16 16:25] LABS: Glucose - Point of Care 129 mg/dl (70-99)
--- NOTE | 2023-11-16 17:31 | W.PN.UPDATE ---
Update Note
Progress Note Update
Pt seen with present. Pt alert, oriented, continues to have rapid, pressured speech- although has self-awareness and is easily redirected. Pt gives history of long-term irregular sleep pattern, with 2 to 3 days without sleep, then
'crashing' and sleeping excessively for a couple days. Pt stays up at night watching TV, then goes to sleep at 6 am /during the day. reports pt has not slept in a week at this point. Pt going on tangents about the past, becomes tearful at
times. reports pt has been depressed recently. Pt states she has been tried on medications in the past, including Seroquel, Wellbutrin, Topamax (caused difficulty with speech). Pt does not want to consider inpatient psychiatric treatment,
is fearful. She does not present any signs of psychosis; denies any SI. Pt started Abilify 5 mg without side effects after the initial dose. Pt prescribed Klonopin by pain specialist at home. She reports Xanax, Ambien were not effective.
Imp: Unspecified mood d/o, R/o Bipolar II d/o, with mixed sx of hypomania and depression
Rec: continue Gabapentin, trial of Abilify. Will add Klonopin for insomnia
Referral to [facility] or [facility]; [facility] or [facility] would be options
will follow
[2023-11-16] MEDS: LOVENOX 40 MG SC (18:20)
[2023-11-16 21:58] LABS: Glucose - Point of Care 118 mg/dl (70-99)
[2023-11-16] MEDS: ABILIFY 5 MG PO (22:17)
[2023-11-16] MEDS: NEURONTIN 600 MG PO (22:17)
[2023-11-16] MEDS: KLONOPIN 1 MG PO (22:17)
[2023-11-17 04:05] VITALS: BMI 18.2
[2023-11-17] MEDS: SYNTHROID 100 MCG PO (05:09)
[2023-11-17 07:00] VITALS: BP 143/96
--- NOTE | 2023-11-17 07:26 | W.PN.HOSP.TC ---
Today's Communication/Plan
-
see bold
Assessment / Plan
Assessment / Plan
HPI: 68 yo F with PMH significant for fibromyalgia, IBS, major depression and hypothyroidism who presented to ED for evaluation of mental status change. Patient brought to ED by her family who note agitation, confusion and hyperactivity which is
very new / acute. No known recent illness, med changes, etc per family. They received a call from a different family member to check on the patient and found her in this state.
Patient was home alone. her has been out of town for approximately 24 hours. One week ago, patient was normal and was caring for grandchildren, etc.
Patient was evaluated in the ED by telepsych who felt that this did not represent a primary psychiatric issue. Medical admission was recommended.
On exam, she answered questions correctly (oriented x 3).
Once she begins speaking she does not stop and will continue to produce random thoughts, random words, vulgarities, etc.
She does not provide further insight into her condition however, when asked about any new meds, substance use / abuse, etc she responds vaguely / unhelpfully. 'I don't know, did I?' 'You would like to know, wouldn't you?'
Review of available records shows long history of establish major depression diagnosis per her PCP.
Over the past several months specifically the PCP has encourage formal psych evaluation and has even scheduled appointments for the patient. However, it appears that patient has not followed through on those appointments / recommendations.
Review of PDMP reveals prescriptions for clonazepam 0.5mg tablets from a [facility] in [place]. Two prescriptions for #270 pills each were filled in August and November 2022. A more recent prescription was filled 10/22/23.
External med Summary / PCP notes also indicate an ED visit in [place] in May 2023 for 'depression / anxiety'.
A/P:
# Mental Status Change with sanchez / hyperactive and pressured speech. Abrupt change per family.
Note history of depression per PCP and specifically ED visit in May in [place] and recent discussion with PCP re: Psych evaluation.
Labs and imaging in the ED are unremarkable. No clear metabolic anomaly / process to explain current symptoms.
? BZD withdrawal given Rx data in PDMP and current UDS negative for benzos.
Follow MSAS scale and treat with BZDs as needed for evident symptoms of withdrawal.
MRI brain unrevealing.
Appreciate psychiatry input, recommend trial of Abilify 5 mg at bedtime, resume Neurontin 300 mg a.m., 600 mg at bedtime
Do not resume Effexor. No need for involuntary commitment, but do recommend inpatient psych
Discharge when cleared by psychiatry
# Benign essential hypertension
Start amlodipine 5 mg daily
# Hypothyroidism
s/p thyroidectomy.
TSH 2.12, FT4 at 1.99
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
# Impaired Fasting Glucose
Records indicate that patient was very recently started on metformin (10/09/23) for 'pre-diabetes'.
Holding metformin, continue carb controlled diet, sliding scale insulin
A1C 5.7
# Underweight, BMI 18.2
Encourage oral intake
# History of Breast Cancer s/p lumpectomy x 2 - both in 2008.
DVT Prophylaxis: Lovenox SQ
Code Status: Full
Total time spent to see the patient on the floor, examine the patient, review data and lab results, discuss treatment plan with patient, nursing staff around 37 minutes.
Physical Exam
General: Thin, no acute distress
HEENT: Normocephalic, Atraumatic, EOMI, MMM
Respiratory: Clear to Auscultation bilaterally
Cardiac: Normal S1/S2, Regular Rate and Rhythm
GI: Soft, Nontender, Nondistended, Normal Bowel Sounds
Extremities: No Clubbing, Cyanosis, or Edema
Neuro: Nonfocal/Grossly Intact
Psych: Elevated mood, pressured speech, tangential thoughts
Anticipated Discharge: 24 - 48 hours
Subjective/Interval History
-
Date of Service: November 17, 2023
Continues to have pressured speech, tangential thoughts. No fever, no vomiting.
Objective Data
-
Vital Signs:
Vital Signs
Temp Pulse Resp BP Pulse Ox
99.4 F 94 16 167/101 100
11/16/23 23:26 11/16/23 23:26 11/16/23 23:26 11/16/23 23:26 11/16/23 23:26
I&O
11/16/23 11/17/23 11/18/23
06:59 06:59 06:59
Intake Total 1200 / 1200 240 / 240
Balance 1200 / 1200 240 / 240
[2023-11-17] MEDS: NORVASC 5 MG PO (07:42)
[2023-11-17] MEDS: VITAMIN B1 100 MG PO ×2 (07:44→20:34)
[2023-11-17] MEDS: NEURONTIN 300 MG PO (07:44)
[2023-11-17] MEDS: FOLVITE 1 MG PO (07:45)
[2023-11-17 08:18] LABS: Glucose - Point of Care 104 mg/dl (70-99)
[2023-11-17 11:57] LABS: Glucose - Point of Care 148 mg/dl (70-99)
--- NOTE | 2023-11-17 12:30 | PN.CDI ---
CDI
- -
CDI:
Physician Documentation Request
Admit Date: 11/14/23 06:50
Dear Doctor Do,
Please review the following and provide your response in the progress notes.
Clinical Indicators:
Spare Hand Carding, 11/14
#Reason for RD visit: consult - poor appetite
#Reason for hospital visit: mental status change
#Current BW: (11/14) 97 lbs 1 oz BMI: 18.3 (underweight)
Please provide an associated diagnosis related to the abnormal BMI, such as:
BMI, 18.3, underweight
Other(please specify)
BMI < or = to 19
Underweight
Weight Loss
Cachectic
Anorexia
Use of terms such as suspected, likely, concern for, or probable (associated with a specific diagnosis that is being evaluated, monitored, or treated as if it exists) are acceptable and can be coded in the inpatient setting, when documented at the
time of discharge.
Thank you,
Madiha Cohen RN BSN CCDS
CDI Specialist
please contact via tiger text
Please use your independent medical judgment in providing your response.
[2023-11-17] MEDS: NON-FORMULARY ITEM 1 UNIT NASAL (12:33)
[2023-11-17 13:32] VITALS: BP 146/81; PULSE 91
[2023-11-17 15:00] VITALS: BP 149/98
[2023-11-17] MEDS: RESTASIS 0.05% OPHTHALMIC EMULSION 10 DROPS BOTH EYES (16:18)
--- NOTE | 2023-11-17 16:19 | PTCARENOTE ---
Patient and spouse upset because the patient is not getting her Pilocarpine. Patient states, 'I can't remember all my medications I am taking when I am trying to get my life together.' RN asked spouse to call in tonight with dose and frequency of
Pilocarpine. Patient and spouse do not know dose or frequency.
[2023-11-17 16:31] LABS: Glucose - Point of Care 143 mg/dl (70-99)
--- NOTE | 2023-11-17 16:41 | W.PN.UPDATE ---
Update Note
Progress Note Update
Pt seen, with present. Pt continues to be hypomanic, with pressured speech, tangential thought process, though redirectable. Pt was able to sleep reportedly for about 4 hours last night after Klonopin 1 mg. Pt asked to increase
Gabapentin, states she usually takes much higher dose for neuropathic pain. Pt complains about not getting all of her medical medications/treatments. Pt reluctant to be discharged, feels nervous/anxious, but does not give a rational explanation.
No overt delusions or hallucinations. Pt alert and oriented, with no signs of medication side effects.
Imp: Unspecified mood d/o, likely Bipolar II d/o, with mixed sx of hypomania and depression
Rec: continue Gabapentin, trial of Abilify, Klonopin for insomnia- will add daytime dose
Referral to PHP or IOP when stable for discharge; [facility] or [facility] would be options
will follow
[2023-11-17] MEDS: LOVENOX 40 MG SC (18:34)
[2023-11-17 21:28] LABS: Glucose - Point of Care 104 mg/dl (70-99)
[2023-11-17] MEDS: NEURONTIN 600 MG PO (21:51)
[2023-11-17] MEDS: KLONOPIN 1 MG PO (21:51)
[2023-11-17] MEDS: ABILIFY 5 MG PO (21:51)
[2023-11-17 23:00] VITALS: BP 134/84
--- NOTE | 2023-11-18 03:08 | PTCARENOTE ---
Pt brought in medication from home - pilocarpine HCL 5mg taken TID. This RN sent medication down to pharmacy, pharmacy is holding medication. Pt got upset when she was not getting her evening dose. This medication was not on home med list, this RN
added pilocarpine HCL to the list. There was no order for pilocarpine, this RN reached out to [facility] to get order. No new orders were made. Explained to pt they cannot have home medications at bedside. Care ongoing.
[2023-11-18] MEDS: SYNTHROID 100 MCG PO (05:25)
[2023-11-18] MEDS: NEURONTIN 300 MG PO (08:24)
[2023-11-18] MEDS: VITAMIN B1 100 MG PO ×2 (08:24→21:41)
[2023-11-18] MEDS: SALAGEN 5 MG PO ×3 (08:25→23:36)
[2023-11-18] MEDS: FOLVITE 1 MG PO (08:25)
[2023-11-18] MEDS: RESTASIS 0.05% OPHTHALMIC EMULSION 1 DROPS BOTH EYES ×2 (08:25→16:28)
[2023-11-18 08:27] LABS: Glucose - Point of Care 96 mg/dl (70-99)
[2023-11-18] MEDS: NON-FORMULARY ITEM 1 UNIT NASAL (08:27)
[2023-11-18 08:31] VITALS: BP 103/85
[2023-11-18] MEDS: KLONOPIN 0.5 MG PO (08:38)
--- NOTE | 2023-11-18 08:54 | W.PN.HOSP.TC ---
Today's Communication/Plan
-
See bold
Assessment / Plan
Assessment / Plan
HPI: 68 yo F with PMH significant for fibromyalgia, IBS, major depression and hypothyroidism who presented to ED for evaluation of mental status change. Patient brought to ED by her family who note agitation, confusion and hyperactivity which is
very new / acute. No known recent illness, med changes, etc per family. They received a call from a different family member to check on the patient and found her in this state.
Patient was home alone. her has been out of town for approximately 24 hours. One week ago, patient was normal and was caring for grandchildren, etc.
Patient was evaluated in the ED by telepsych who felt that this did not represent a primary psychiatric issue. Medical admission was recommended.
On exam, she answered questions correctly (oriented x 3).
Once she begins speaking she does not stop and will continue to produce random thoughts, random words, vulgarities, etc.
She does not provide further insight into her condition however, when asked about any new meds, substance use / abuse, etc she responds vaguely / unhelpfully. 'I don't know, did I?' 'You would like to know, wouldn't you?'
Review of available records shows long history of establish major depression diagnosis per her PCP.
Over the past several months specifically the PCP has encourage formal psych evaluation and has even scheduled appointments for the patient. However, it appears that patient has not followed through on those appointments / recommendations.
Review of PDMP reveals prescriptions for clonazepam 0.5mg tablets from a [facility] in [place]. Two prescriptions for #270 pills each were filled in August and November 2022. A more recent prescription was filled 10/22/23.
External med Summary / PCP notes also indicate an ED visit in [place] in May 2023 for 'depression / anxiety'.
A/P:
# Mental Status Change with sanchez / hyperactive and pressured speech. Abrupt change per family.
Note history of depression per PCP and specifically ED visit in May in [place] and recent discussion with PCP re: Psych evaluation.
Labs and imaging in the ED are unremarkable. No clear metabolic anomaly / process to explain current symptoms.
? BZD withdrawal given Rx data in PDMP and current UDS negative for benzos.
Follow MSAS scale and treat with BZDs as needed for evident symptoms of withdrawal.
MRI brain unrevealing.
Appreciate psychiatry input, recommend trial of Abilify 5 mg at bedtime, resume Neurontin 300 mg a.m., 600 mg at bedtime
Started on Klonopin 0.5 mg daily, 1 mg at bedtime by psychiatry as well
Do not resume Effexor. Patient declines psychiatric hospitalization, psychiatry recommends partial hospitalization/ PHP
Discharge when cleared by psychiatry
# Benign essential hypertension
Started amlodipine 5 mg daily with hold parameters
# Hypothyroidism
s/p thyroidectomy.
TSH 2.12, FT4 at 1.99
Continue MANAGER PROGRAM MANAGEMENT Synthroid
# Impaired Fasting Glucose
Records indicate that patient was very recently started on metformin (10/09/23) for 'pre-diabetes'.
Holding metformin, continue carb controlled diet, sliding scale insulin
A1C 5.7
# Underweight, BMI 18.2
Encourage oral intake
# History of Breast Cancer s/p lumpectomy x 2 - both in 2008.
DVT Prophylaxis: Lovenox SQ
Code Status: Full
Total time spent to see the patient on the floor, examine the patient, review data and lab results, discuss treatment plan with patient, nursing staff around 51 minutes.
Physical Exam
General: Thin, no acute distress
HEENT: Normocephalic, Atraumatic, EOMI, MMM
Respiratory: Clear to Auscultation bilaterally
Cardiac: Normal S1/S2, Regular Rate and Rhythm
GI: Soft, Nontender, Nondistended, Normal Bowel Sounds
Extremities: No Clubbing, Cyanosis, or Edema
Neuro: Nonfocal/Grossly Intact
Psych: Elevated mood, pressured speech, tangential thoughts
Anticipated Discharge: 24 - 48 hours
Subjective/Interval History
-
Date of Service: November 18, 2023
Patient reports sleeping better. No fever, no vomiting.
Objective Data
-
Vital Signs:
Vital Signs
Temp Pulse Resp BP Pulse Ox
97.9 F 88 20 103/85 98
11/18/23 08:31 11/18/23 08:31 11/18/23 08:31 11/18/23 08:31 11/18/23 08:31
I&O
11/17/23 11/18/23 11/19/23
06:59 06:59 06:59
Intake Total 240 / 240 1200 / 1200
Balance 240 / 240 1200 / 1200
[2023-11-18 11:05] VITALS: BP 115/74
--- NOTE | 2023-11-18 11:34 | W.PN.UPDATE ---
Update Note
Progress Note Update
patient seen chart reviewed. spoke with nursing, dr meyer and case management manager. the patient was pleasant although she talked non stop in a rambling tangential manner. she did seem to understand this. she told nsg she has 'adult adhd'. i suspect the dx
is more accurately some version of bipolar disorder. it is my understanding that family attempted a 302 commitment but was turned down. i do not see her to be a danger to herself or others at this point. one to one was discontinued. she is not
amenable to in pt hospital and it is not clear to me that in pt is necessary. she agrees to partial hospital which i feel would be appropriate. spoke w samia larson about calling [facility] to see if their php would be a possibility. did not make any changes
to meds. she has just started on abilify which is a reasonably choice for control of bipolar/sanchez/hypomania. would monitor use of klonopin and consider taper and dc in the future although not today. will follow
[2023-11-18 12:10] LABS: Glucose - Point of Care 139 mg/dl (70-99)
[2023-11-18] MEDS: NORVASC PO (12:10)
[2023-11-18 15:00] VITALS: BP 129/62
--- NOTE | 2023-11-18 16:02 | CM ---
Reviewed chart, spoke with Psychiatry who is indicating PHP for patient at [facility]. She provided the information for the program clerk, (Alena). Placed a call to Alena and she took CM contact information and stated that she would call
in the am with information regarding when patient can start.
Plan: Case management will continue to follow and assist with discharge planning. PHP at [facility].
[2023-11-18 16:17] LABS: Glucose - Point of Care 100 mg/dl (70-99)
[2023-11-18] MEDS: LOVENOX 40 MG SC (18:09)
[2023-11-18 21:09] LABS: Glucose - Point of Care 109 mg/dl (70-99)
[2023-11-18 23:33] VITALS: BP 108/71
[2023-11-18] MEDS: KLONOPIN 1 MG PO (23:33)
[2023-11-18] MEDS: ABILIFY 5 MG PO (23:33)
[2023-11-18] MEDS: NEURONTIN 600 MG PO (23:33)
[2023-11-19] MEDS: SYNTHROID 100 MCG PO (06:23)
[2023-11-19 08:22] VITALS: BP 114/80
[2023-11-19 08:32] LABS: Glucose - Point of Care 89 mg/dl (70-99)
[2023-11-19] MEDS: KLONOPIN 0.5 MG PO (08:37)
[2023-11-19] MEDS: SALAGEN 5 MG PO ×3 (08:37→23:20)
[2023-11-19] MEDS: VITAMIN B1 100 MG PO ×2 (08:37→23:20)
[2023-11-19] MEDS: NORVASC 5 MG PO (08:37)
[2023-11-19] MEDS: NEURONTIN 300 MG PO (08:37)
[2023-11-19] MEDS: RESTASIS 0.05% OPHTHALMIC EMULSION 1 DROPS BOTH EYES (08:38)
[2023-11-19] MEDS: NON-FORMULARY ITEM 1 UNIT NASAL (08:39)
--- NOTE | 2023-11-19 08:40 | W.PN.HOSP.TC ---
Today's Communication/Plan
-
see bold
Assessment / Plan
Assessment / Plan
HPI: 68 yo F with PMH significant for fibromyalgia, IBS, major depression and hypothyroidism who presented to ED for evaluation of mental status change. Patient brought to ED by her family who note agitation, confusion and hyperactivity which is
very new / acute. No known recent illness, med changes, etc per family. They received a call from a different family member to check on the patient and found her in this state.
Patient was home alone. her has been out of town for approximately 24 hours. One week ago, patient was normal and was caring for grandchildren, etc.
Patient was evaluated in the ED by telepsych who felt that this did not represent a primary psychiatric issue. Medical admission was recommended.
On exam, she answered questions correctly (oriented x 3).
Once she begins speaking she does not stop and will continue to produce random thoughts, random words, vulgarities, etc.
She does not provide further insight into her condition however, when asked about any new meds, substance use / abuse, etc she responds vaguely / unhelpfully. 'I don't know, did I?' 'You would like to know, wouldn't you?'
Review of available records shows long history of establish major depression diagnosis per her PCP.
Over the past several months specifically the PCP has encourage formal psych evaluation and has even scheduled appointments for the patient. However, it appears that patient has not followed through on those appointments / recommendations.
Review of PDMP reveals prescriptions for clonazepam 0.5mg tablets from a [facility] in [place]. Two prescriptions for #270 pills each were filled in August and November 2022. A more recent prescription was filled 10/22/23.
External med Summary / PCP notes also indicate an ED visit in [place] in May 2023 for 'depression / anxiety'.
A/P:
# Mental Status Change with sanchez / hyperactive and pressured speech. Abrupt change per family.
Note history of depression per PCP and specifically ED visit in May in [place] and recent discussion with PCP re: Psych evaluation.
Labs and imaging in the ED are unremarkable. No clear metabolic anomaly / process to explain current symptoms.
? BZD withdrawal given Rx data in PDMP and current UDS negative for benzos.
Follow MSAS scale and treat with BZDs as needed for evident symptoms of withdrawal.
MRI brain unrevealing.
Appreciate psychiatry input, recommend trial of Abilify 5 mg at bedtime, resumed Neurontin 300 mg a.m., 600 mg at bedtime
Started on Klonopin 0.5 mg daily, 1 mg at bedtime by psychiatry as well
Do not resume Effexor. Patient declines psychiatric hospitalization, psychiatry recommends partial hospitalization/ PHP
Discharge when bed available for PHP
# Benign essential hypertension
Started amlodipine 5 mg daily with hold parameters
# Hypothyroidism
s/p thyroidectomy.
TSH 2.12, FT4 at 1.99
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
# Impaired Fasting Glucose
Records indicate that patient was very recently started on metformin (10/09/23) for 'pre-diabetes'.
Resumed metformin
A1C 5.7
# Underweight, BMI 18.2
Encourage oral intake
# History of Breast Cancer s/p lumpectomy x 2 - both in 2008.
DVT Prophylaxis: Lovenox SQ
Code Status: Full
Total time spent to see the patient on the floor, examine the patient, review data and lab results, discuss treatment plan with patient, nursing staff around 50 minutes.
Physical Exam
General: Thin, no acute distress
HEENT: Normocephalic, Atraumatic, EOMI, MMM
Respiratory: Clear to Auscultation bilaterally
Cardiac: Normal S1/S2, Regular Rate and Rhythm
GI: Soft, Nontender, Nondistended, Normal Bowel Sounds
Extremities: No Clubbing, Cyanosis, or Edema
Neuro: Nonfocal/Grossly Intact
Psych: Elevated mood, pressured speech, tangential thoughts
Anticipated Discharge: 24 - 48 hours
Subjective/Interval History
-
Date of Service: November 19, 2023
Patient reports sleeping better. Continues to have pressured speech, tangential thoughts. No fever, no vomiting.
Objective Data
-
Vital Signs:
Vital Signs
Temp Pulse Resp BP Pulse Ox
97.8 F 89 20 114/80 100
11/19/23 08:22 11/19/23 08:22 11/19/23 08:22 11/19/23 08:22 11/19/23 08:22
I&O
11/18/23 11/19/23 11/20/23
06:59 06:59 06:59
Intake Total 1200 / 1200 2160 / 2160
Balance 1200 / 1200 2160 / 2160
[2023-11-19] MEDS: FOLVITE 1 MG PO (08:42)
[2023-11-19] MEDS: MIRALAX 17 GRAMS PO (13:08)
[2023-11-19 14:25] VITALS: BP 107/67
[2023-11-19 15:10] LABS: Glucose - Point of Care 102 mg/dl (70-99)
[2023-11-19] MEDS: PROTONIX 40 MG PO (15:14)
--- NOTE | 2023-11-19 15:24 | CM ---
Placed a call to Alena at [facility] to determine if patient can start at [facility] upon discharge, however had to leave a voice mail message. Requested return call with update on potential start date of Partial.
Plan: Case management will continue to follow and assist with discharge planning. Home when stable with outpatient mental health. .
--- NOTE | 2023-11-19 15:51 | W.PN.UPDATE ---
Update Note
Progress Note Update
Pt seen at bedside - sitting up in chair listening to music on her phone. Pleasant & cooperative, oriented. Remains quite logorrheic and circumstantial, at times tangential but redirectable. A bit labile at times, but minimally so. No side effects
from Abilifmaria elena thus far. Is looking forward to going home as has returned from his trip and she wants to work on their marriage. Is looking forward to starting PHP as well. Overall positive spirits. Although speech and thought process remain
circumstantial this seems to be baseline while here and does not pose a particular threat to pt so would not warrant inpatient management.
Continue current regimen - dispo pending PHP admission/start date
[2023-11-19] MEDS: GLUCOPHAGE 500 MG PO (17:42)
[2023-11-19] MEDS: LOVENOX 40 MG SC (17:43)
[2023-11-19 18:57] LABS: Glucose - Point of Care 105 mg/dl (70-99)
[2023-11-19 23:00] VITALS: BP 111/74
[2023-11-19] MEDS: ABILIFY 5 MG PO (23:20)
[2023-11-19] MEDS: KLONOPIN 1 MG PO (23:21)
[2023-11-19] MEDS: NEURONTIN 600 MG PO (23:22)
[2023-11-19] MEDS: NON-FORMULARY ITEM 1 DROP BOTH EYES (23:22)
[2023-11-20 04:45] LABS: Glucose - Point of Care 100 mg/dl (70-99)
[2023-11-20] MEDS: SYNTHROID 100 MCG PO (05:00)
[2023-11-20 06:00] VITALS: BMI 18.5
[2023-11-20 07:30] LABS: Glucose - Point of Care 85 mg/dl (70-99)
[2023-11-20 07:34] VITALS: BP 91/52
--- NOTE | 2023-11-20 08:56 | W.PN.HOSP.TC ---
Today's Communication/Plan
-
Discharge when bed available for PHP
Assessment / Plan
Assessment / Plan
HPI: 68 yo F with PMH significant for fibromyalgia, IBS, major depression and hypothyroidism who presented to ED for evaluation of mental status change. Patient brought to ED by her family who note agitation, confusion and hyperactivity which is
very new / acute. No known recent illness, med changes, etc per family. They received a call from a different family member to check on the patient and found her in this state.
Patient was home alone. her has been out of town for approximately 24 hours. One week ago, patient was normal and was caring for grandchildren, etc.
Patient was evaluated in the ED by telepsych who felt that this did not represent a primary psychiatric issue. Medical admission was recommended.
On exam, she answered questions correctly (oriented x 3).
Once she begins speaking she does not stop and will continue to produce random thoughts, random words, vulgarities, etc.
She does not provide further insight into her condition however, when asked about any new meds, substance use / abuse, etc she responds vaguely / unhelpfully. 'I don't know, did I?' 'You would like to know, wouldn't you?'
Review of available records shows long history of establish major depression diagnosis per her PCP.
Over the past several months specifically the PCP has encourage formal psych evaluation and has even scheduled appointments for the patient. However, it appears that patient has not followed through on those appointments / recommendations.
Review of PDMP reveals prescriptions for clonazepam 0.5mg tablets from a [facility] in [place]. Two prescriptions for #270 pills each were filled in August and November 2022. A more recent prescription was filled 10/22/23.
External med Summary / PCP notes also indicate an ED visit in [place] in May 2023 for 'depression / anxiety'.
A/P:
# Mental Status Change with sanchez / hyperactive and pressured speech. Abrupt change per family.
Note history of depression per PCP and specifically ED visit in May in [place] and recent discussion with PCP re: Psych evaluation.
Labs and imaging in the ED are unremarkable. No clear metabolic anomaly / process to explain current symptoms.
? BZD withdrawal given Rx data in PDMP and current UDS negative for benzos.
Follow MSAS scale and treat with BZDs as needed for evident symptoms of withdrawal.
MRI brain unrevealing.
Appreciate psychiatry input, recommend trial of Abilify 5 mg at bedtime, resumed Neurontin 300 mg a.m., 600 mg at bedtime
Started on Klonopin 0.5 mg daily, 1 mg at bedtime by psychiatry as well
Do not resume Effexor. Patient declines psychiatric hospitalization, psychiatry recommends partial hospitalization/ PHP
Discharge when bed available for PHP
# Benign essential hypertension
Blood pressure soft, discontinue amlodipine
# Hypothyroidism
s/p thyroidectomy.
TSH 2.12, FT4 at 1.99
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
# Impaired Fasting Glucose
Records indicate that patient was very recently started on metformin (10/09/23) for 'pre-diabetes'.
Resumed metformin
A1C 5.7
# Underweight, BMI 18.2
Encourage oral intake
# History of Breast Cancer s/p lumpectomy x 2 - both in 2008.
DVT Prophylaxis: Lovenox SQ
Code Status: Full
Total time spent to see the patient on the floor, examine the patient, review data and lab results, discuss treatment plan with patient, nursing staff around 40 minutes.
Physical Exam
General: Thin, no acute distress
HEENT: Normocephalic, Atraumatic, EOMI, MMM
Respiratory: Clear to Auscultation bilaterally
Cardiac: Normal S1/S2, Regular Rate and Rhythm
GI: Soft, Nontender, Nondistended, Normal Bowel Sounds
Extremities: No Clubbing, Cyanosis, or Edema
Neuro: Nonfocal/Grossly Intact
Psych: Elevated mood, pressured speech, tangential thoughts
Anticipated Discharge: Within 24 hours
Subjective/Interval History
-
Date of Service: November 20, 2023
Patient reports sleeping better. No fever, no vomiting.
Objective Data
-
Vital Signs:
Vital Signs
Temp Pulse Resp BP Pulse Ox
97.8 F 78 17 91/52 95
11/20/23 07:34 11/20/23 07:34 11/20/23 07:34 11/20/23 07:34 11/20/23 07:34
I&O
11/19/23 11/20/23 11/21/23
06:59 06:59 06:59
Intake Total 2160 / 2160 960 / 960
Balance 2160 / 2160 960 / 960
[2023-11-20] MEDS: NORVASC PO (09:56)
[2023-11-20] MEDS: PROTONIX 40 MG PO (09:58)
[2023-11-20] MEDS: NEURONTIN 300 MG PO (09:58)
[2023-11-20] MEDS: SALAGEN 5 MG PO ×3 (09:59→21:20)
[2023-11-20] MEDS: KLONOPIN 0.5 MG PO (09:59)
[2023-11-20] MEDS: SINGULAIR 10 MG PO (09:59)
[2023-11-20] MEDS: VITAMIN B1 100 MG PO ×2 (09:59→21:21)
[2023-11-20] MEDS: FOLVITE 1 MG PO (09:59)
[2023-11-20] MEDS: NON-FORMULARY ITEM 1 UNIT NASAL (10:00)
[2023-11-20] MEDS: MIRALAX PO (10:01)
[2023-11-20] MEDS: NON-FORMULARY ITEM 1 DROP BOTH EYES ×2 (10:02→23:21)
[2023-11-20 11:30] LABS: Glucose - Point of Care 173 mg/dl (70-99)
[2023-11-20 14:22] LABS: Glucose - Point of Care 92 mg/dl (70-99)
[2023-11-20 14:51] VITALS: BP 142/92
[2023-11-20 16:32] LABS: Glucose - Point of Care 109 mg/dl (70-99)
[2023-11-20] MEDS: LOVENOX 40 MG SC (17:12)
[2023-11-20] MEDS: GLUCOPHAGE 500 MG PO (18:41)
[2023-11-20] MEDS: ABILIFY 5 MG PO (21:20)
[2023-11-20 21:24] LABS: Glucose - Point of Care 119 mg/dl (70-99)
[2023-11-20] MEDS: KLONOPIN 1 MG PO (23:20)
[2023-11-20] MEDS: NEURONTIN 600 MG PO (23:20)
[2023-11-20 23:21] VITALS: BP 133/83
[2023-11-21 03:47] VITALS: BP 126/75
[2023-11-21] MEDS: SYNTHROID 100 MCG PO (05:44)
[2023-11-21 06:00] VITALS: BMI 18.5
--- NOTE | 2023-11-21 07:31 | W.PN.HOSP.TC ---
Today's Communication/Plan
-
Discharge when partial hospitalization has been arranged
Assessment / Plan
Assessment / Plan
HPI: 68 yo F with PMH significant for fibromyalgia, IBS, major depression and hypothyroidism who presented to ED for evaluation of mental status change. Patient brought to ED by her family who note agitation, confusion and hyperactivity which is
very new / acute. No known recent illness, med changes, etc per family. They received a call from a different family member to check on the patient and found her in this state.
Patient was home alone. her has been out of town for approximately 24 hours. One week ago, patient was normal and was caring for grandchildren, etc.
Patient was evaluated in the ED by telepsych who felt that this did not represent a primary psychiatric issue. Medical admission was recommended.
On exam, she answered questions correctly (oriented x 3).
Once she begins speaking she does not stop and will continue to produce random thoughts, random words, vulgarities, etc.
She does not provide further insight into her condition however, when asked about any new meds, substance use / abuse, etc she responds vaguely / unhelpfully. 'I don't know, did I?' 'You would like to know, wouldn't you?'
Review of available records shows long history of establish major depression diagnosis per her PCP.
Over the past several months specifically the PCP has encourage formal psych evaluation and has even scheduled appointments for the patient. However, it appears that patient has not followed through on those appointments / recommendations.
Review of PDMP reveals prescriptions for clonazepam 0.5mg tablets from a [facility] in [place]. Two prescriptions for #270 pills each were filled in August and November 2022. A more recent prescription was filled 10/22/23.
External med Summary / PCP notes also indicate an ED visit in [place] in May 2023 for 'depression / anxiety'.
A/P:
# Mental Status Change with sanchez / hyperactive and pressured speech. Abrupt change per family.
Note history of depression per PCP and specifically ED visit in May in [place] and recent discussion with PCP re: Psych evaluation.
Labs and imaging in the ED are unremarkable. No clear metabolic anomaly / process to explain current symptoms.
? BZD withdrawal given Rx data in PDMP and current UDS negative for benzos.
Follow MSAS scale and treat with BZDs as needed for evident symptoms of withdrawal.
MRI brain unrevealing.
Appreciate psychiatry input, recommend trial of Abilify 5 mg at bedtime, resumed Neurontin 300 mg a.m., 600 mg at bedtime
Started on Klonopin 0.5 mg daily, 1 mg at bedtime by psychiatry as well
Do not resume Effexor. Patient declines psychiatric hospitalization, psychiatry recommends partial hospitalization/ PHP
Discharge when partial hospitalization has been arranged
# Benign essential hypertension
Blood pressure soft, discontinued amlodipine
# Hypothyroidism
s/p thyroidectomy.
TSH 2.12, FT4 at 1.99
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
# Impaired Fasting Glucose
Records indicate that patient was very recently started on metformin (10/09/23) for 'pre-diabetes'.
Resumed metformin
A1C 5.7
# Underweight, BMI 18.2
Encourage oral intake
# History of Breast Cancer s/p lumpectomy x 2 - both in 2008.
DVT Prophylaxis: Lovenox SQ
Code Status: Full
Total time spent to see the patient on the floor, examine the patient, review data and lab results, discuss treatment plan with patient, nursing staff around 35 minutes.
Physical Exam
General: Thin, no acute distress
HEENT: Normocephalic, Atraumatic, EOMI, MMM
Respiratory: Clear to Auscultation bilaterally
Cardiac: Normal S1/S2, Regular Rate and Rhythm
GI: Soft, Nontender, Nondistended, Normal Bowel Sounds
Extremities: No Clubbing, Cyanosis, or Edema
Neuro: Nonfocal/Grossly Intact
Psych: Elevated mood, pressured speech, tangential thoughts
Anticipated Discharge: Within 24 hours
Subjective/Interval History
-
Date of Service: November 21, 2023
Patient continues to feel better, she is sleeping better. No fever, no vomiting.
Objective Data
-
Vital Signs:
Vital Signs
Temp Pulse Resp BP Pulse Ox
98.3 F 91 14 133/83 97
11/20/23 23:21 11/20/23 23:21 11/20/23 23:21 11/20/23 23:21 11/20/23 23:21
I&O
11/20/23 11/21/23 11/22/23
06:59 06:59 06:59
Intake Total 960 / 960 1640 / 1640
Balance 960 / 960 1640 / 1640
[2023-11-21] MEDS: VITAMIN B1 100 MG PO ×2 (07:37→20:21)
[2023-11-21] MEDS: SALAGEN 5 MG PO ×3 (07:37→23:31)
[2023-11-21] MEDS: KLONOPIN 0.5 MG PO (07:37)
[2023-11-21] MEDS: FOLVITE 1 MG PO (07:37)
[2023-11-21] MEDS: PROTONIX 40 MG PO (07:37)
[2023-11-21] MEDS: SINGULAIR 10 MG PO (07:37)
[2023-11-21] MEDS: NEURONTIN 300 MG PO (07:37)
[2023-11-21] MEDS: NON-FORMULARY ITEM 1 UNIT NASAL (07:38)
[2023-11-21] MEDS: MIRALAX 17 GRAMS PO (07:43)
[2023-11-21] MEDS: NON-FORMULARY ITEM 1 DROP BOTH EYES ×2 (07:54→23:29)
[2023-11-21 08:00] VITALS: BP 100/67
[2023-11-21 08:43] LABS: Glucose - Point of Care 104 mg/dl (70-99)
--- NOTE | 2023-11-21 12:43 | W.PN.UPDATE ---
Update Note
Progress Note Update
Pt. admitted with manic symptoms and tele-psychiatrist wanted her evaluated for underlying medical problems which have been ruled-out. She is making some improvement on Abilify 5mg. HS. I had to wake her after three visits to her room where she
was sleeping soundly with music playing loudly.
Speech is still pressured. Had on phone for most of visit, but he did not contribute much. She said she goes through these episodes frequently with staying up for days and then sleeping for days.
She is agreeable to raising dose of Abilify to 10 mg. for mood stabilization. Perhaps past recent history of hallucinations as well. Plan is for [facility] PHP.
Psychiatry will follow.
[2023-11-21 13:43] LABS: Glucose - Point of Care 98 mg/dl (70-99)
[2023-11-21 15:47] VITALS: BP 126/75
[2023-11-21 17:43] LABS: Glucose - Point of Care 103 mg/dl (70-99)
[2023-11-21] MEDS: LOVENOX 40 MG SC (18:06)
[2023-11-21] MEDS: GLUCOPHAGE 500 MG PO (18:07)
[2023-11-21 21:49] LABS: Glucose - Point of Care 98 mg/dl (70-99)
[2023-11-21] MEDS: NEURONTIN 600 MG PO (22:16)
[2023-11-21] MEDS: ABILIFY 10 MG PO (22:16)
[2023-11-21 23:00] VITALS: BP 110/80
[2023-11-21] MEDS: KLONOPIN 1 MG PO (23:29)
[2023-11-22] MEDS: SYNTHROID 100 MCG PO (05:06)
[2023-11-22 06:00] VITALS: BMI 18.6
[2023-11-22 07:51] VITALS: BP 116/62
--- NOTE | 2023-11-22 08:34 | W.PN.HOSP.TC ---
Addendum entered and electronically signed by Hernán Santana MD 11/22/23 13:53:
Correction, psychiatry increased patient's Abilify to 10 mg at bedtime on 11/20.
Original Note:
Today's Communication/Plan
-
Awaiting placement at partial hospitalization
Assessment / Plan
Assessment / Plan
HPI: 68 yo F with PMH significant for fibromyalgia, IBS, major depression and hypothyroidism who presented to ED for evaluation of mental status change. Patient brought to ED by her family who note agitation, confusion and hyperactivity which is
very new / acute. No known recent illness, med changes, etc per family. They received a call from a different family member to check on the patient and found her in this state.
Patient was home alone. her has been out of town for approximately 24 hours. One week ago, patient was normal and was caring for grandchildren, etc.
Patient was evaluated in the ED by telepsych who felt that this did not represent a primary psychiatric issue. Medical admission was recommended.
A/P:
#Mental Status Change with sanchez / hyperactive and pressured speech
#Bipolar disorder, newly diagnosed
Note history of depression per PCP and specifically ED visit in May in [place] and recent discussion with PCP re: Psych evaluation.
Labs and imaging in the ED are unremarkable. No clear metabolic anomaly / process to explain current symptoms.
? BZD withdrawal given Rx data in PDMP and current UDS negative for benzos.
Follow MSAS scale and treat with BZDs as needed for evident symptoms of withdrawal.
MRI brain unrevealing.
Appreciate psychiatry input, recommend trial of Abilify 5 mg at bedtime, resumed Neurontin 300 mg a.m., 600 mg at bedtime
Started on Klonopin 0.5 mg daily, 1 mg at bedtime by psychiatry as well
Do not resume Effexor. Patient declines psychiatric hospitalization, psychiatry recommends partial hospitalization/ PHP
Discharge when partial hospitalization has been arranged
# Benign essential hypertension
Blood pressure soft, discontinued amlodipine
# Hypothyroidism
s/p thyroidectomy.
TSH 2.12, FT4 at 1.99
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
# Impaired Fasting Glucose
Records indicate that patient was very recently started on metformin (10/09/23) for 'pre-diabetes'.
Resumed metformin
A1C 5.7
# Underweight, BMI 18.2
Encourage oral intake
# History of Breast Cancer s/p lumpectomy x 2 - both in 2008.
DVT Prophylaxis: Lovenox SQ
Code Status: Full
Total time spent to see the patient on the floor, examine the patient, review data and lab results, discuss treatment plan with patient, nursing staff around 36 minutes.
Physical Exam
General: Thin, no acute distress
HEENT: Normocephalic, Atraumatic, EOMI, MMM
Respiratory: Clear to Auscultation bilaterally
Cardiac: Normal S1/S2, Regular Rate and Rhythm
GI: Soft, Nontender, Nondistended, Normal Bowel Sounds
Extremities: No Clubbing, Cyanosis, or Edema
Neuro: Nonfocal/Grossly Intact
Psych: Elevated mood, pressured speech, tangential thoughts
Anticipated Discharge: Within 24 hours
Subjective/Interval History
-
Date of Service: November 22, 2023
Patient continues to have pressured speech, tangential thoughts. Reports sleeping better. No fever, no vomiting.
Objective Data
-
Vital Signs:
Vital Signs
Temp Pulse Resp BP Pulse Ox
97.9 F 86 21 116/62 100
11/22/23 07:51 11/22/23 07:51 11/22/23 07:51 11/22/23 07:51 11/22/23 07:51
I&O
11/21/23 11/22/23 11/23/23
06:59 06:59 06:59
Intake Total 1640 / 1640 720 / 720
Balance 1640 / 1640 720 / 720
[2023-11-22 08:37] LABS: Glucose - Point of Care 104 mg/dl (70-99)
[2023-11-22] MEDS: SALAGEN 5 MG PO ×3 (09:19→21:00)
[2023-11-22] MEDS: PROTONIX 40 MG PO (09:20)
[2023-11-22] MEDS: KLONOPIN 0.5 MG PO (09:20)
[2023-11-22] MEDS: SINGULAIR 10 MG PO (09:20)
[2023-11-22] MEDS: VITAMIN B1 100 MG PO ×2 (09:20→21:00)
[2023-11-22] MEDS: FOLVITE 1 MG PO (09:20)
[2023-11-22] MEDS: MIRALAX 17 GRAMS PO (09:20)
[2023-11-22] MEDS: NON-FORMULARY ITEM 1 DROP BOTH EYES ×2 (09:21→23:05)
[2023-11-22] MEDS: NON-FORMULARY ITEM 1 UNIT NASAL (09:22)
[2023-11-22] MEDS: NEURONTIN 300 MG PO (09:22)
[2023-11-22 12:06] LABS: Glucose - Point of Care 105 mg/dl (70-99)
--- NOTE | 2023-11-22 15:40 | W.PN.UPDATE ---
Update Note
Progress Note Update
Pt. with presumably newly diagnosed bipolar disorder, manic, seen for follow-up. She has still exhibited hypomania in the hospita, Today continues to have pressured speech and decreased sleep. Dog and are visiting. No evidence of
delusions or hallucinations. No suicidal or homicidal ideation. Yesterday I increased Abilify from 5 mg. to 10 mg. She may have had some nausea from this change with relief from eating crackers. She reports she fell asleep watching television
at 2:30 AM, was awakened for medication at 6:30 and then fell back to sleep for an hour. This is after sleeping excessively yesterday during the day.
She is eager for discharge to home to attend [facility] PHP. Presumably this is being arranged. I do not think inpatient treatment is indicated. She and go to [place] for the winter and she is concerned about continuity of care -- does not even
have a PCP in [place] which I advised her to get.
Continue medication unchanged. Psychiatry will follow. Hopefully can be discharged tomorrow to begin PHP program. She is not to restart home psychiatric medications.
[2023-11-22 16:03] VITALS: BP 125/83
[2023-11-22] MEDS: GLUCOPHAGE 500 MG PO (16:17)
[2023-11-22] MEDS: LOVENOX 40 MG SC (16:17)
[2023-11-22 16:49] LABS: Glucose - Point of Care 85 mg/dl (70-99)
[2023-11-22] MEDS: ABILIFY 10 MG PO (21:00)
[2023-11-22] MEDS: NEURONTIN 600 MG PO (21:02)
[2023-11-22 21:04] LABS: Glucose - Point of Care 97 mg/dl (70-99)
[2023-11-22] MEDS: KLONOPIN 1 MG PO (23:05)
[2023-11-23 00:03] VITALS: BP 112/67
[2023-11-23 05:44] VITALS: BMI 18.5
[2023-11-23] MEDS: SYNTHROID 100 MCG PO (06:12)
[2023-11-23] MEDS: SYNTHROID 50 MCG PO (06:12)
[2023-11-23 07:14] VITALS: BP 125/77
[2023-11-23 07:35] LABS: Glucose - Point of Care 112 mg/dl (70-99)
[2023-11-23] MEDS: KLONOPIN 0.5 MG PO (07:57)
[2023-11-23] MEDS: PROTONIX 40 MG PO (07:57)
[2023-11-23] MEDS: MIRALAX 17 GRAMS PO (07:57)
[2023-11-23] MEDS: SINGULAIR 10 MG PO (07:57)
[2023-11-23] MEDS: NON-FORMULARY ITEM 1 UNIT NASAL (07:58)
[2023-11-23] MEDS: SALAGEN 5 MG PO ×3 (07:58→21:19)
[2023-11-23] MEDS: VITAMIN B1 100 MG PO ×2 (07:58→21:13)
[2023-11-23] MEDS: FOLVITE 1 MG PO (07:58)
[2023-11-23] MEDS: NON-FORMULARY ITEM 2 DROP BOTH EYES ×2 (07:59→21:15)
[2023-11-23] MEDS: SYNTHROID PO (08:05)
[2023-11-23] MEDS: NEURONTIN 300 MG PO (08:13)
[2023-11-23 11:27] LABS: Glucose - Point of Care 117 mg/dl (70-99)
--- NOTE | 2023-11-23 12:27 | W.PN.HOSP.TC ---
Today's Communication/Plan
-
see A/P
Assessment / Plan
Assessment / Plan
HPI: 68 yo F with PMH significant for fibromyalgia, IBS, major depression and hypothyroidism who presented to ED for evaluation of mental status change. Patient brought to ED by her family who note agitation, confusion and hyperactivity which is
very new / acute. No known recent illness, med changes, etc per family. They received a call from a different family member to check on the patient and found her in this state.
Patient was home alone. her has been out of town for approximately 24 hours. One week ago, patient was normal and was caring for grandchildren, etc.
Patient was evaluated in the ED by telepsych who felt that this did not represent a primary psychiatric issue. Medical admission was recommended.
A/P:
# Mental Status Change with sanchez / hyperactive and pressured speech
# Bipolar disorder, newly diagnosed
Note history of depression per PCP and specifically ED visit in May in [place] and recent discussion with PCP re: Psych evaluation.
Labs and imaging in the ED are unremarkable. No clear metabolic anomaly / process to explain current symptoms.
? BZD withdrawal given Rx data in PDMP and current UDS negative for benzos. Follow MSAS scale and treat with BZDs as needed for evident symptoms of withdrawal.
MRI brain unrevealing.
Appreciate psychiatry input, recommend trial of Abilify now at 10 mg at bedtime, resumed Neurontin 300 mg a.m., 600 mg at bedtime
Started on Klonopin 0.5 mg daily and 1 mg at bedtime by psychiatry as well
Do not resume Effexor. Patient declines psychiatric hospitalization, psychiatry recommends partial hospitalization/ PHP
Discharge when partial hospitalization has been arranged
# Benign essential hypertension
Blood pressure soft, discontinued amlodipine
# Hypothyroidism
s/p thyroidectomy.
TSH 2.12, FT4 at 1.99
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
# Impaired Fasting Glucose
Records indicate that patient was very recently started on metformin (10/09/23) for 'pre-diabetes'.
Resumed metformin
A1C 5.7
# Underweight, BMI 18.2
Encourage oral intake
# History of Breast Cancer s/p lumpectomy x 2 - both in 2008.
DVT Prophylaxis: Lovenox SQ
Code Status: Full
Anticipated Discharge: Within 24 hours
Subjective/Interval History
-
Date of Service: November 23, 2023
Objective Data
-
Vital Signs:
Vital Signs
Temp Pulse Resp BP Pulse Ox
36.8 C 68 17 125/77 98
11/23/23 07:14 11/23/23 07:14 11/23/23 07:14 11/23/23 07:14 11/23/23 07:14
I&O
11/22/23 11/23/23 11/24/23
06:59 06:59 06:59
Intake Total 720 / 720 1080 / 1080
Balance 720 / 720 1080 / 1080
Review of Systems
-
All other systems: Reviewed and negative
Physical Exam
-
General: Well Developed, Well Nourished, No Apparent Distress, Comfortable and Conversant; Negative Respiratory Distress
HEENT: Normocephalic, Atraumatic, Nose Appears Normal and Ears Appear Normal; Negative Oxygen
Respiratory: Clear to Auscultation and Non Labored Respirations; Negative Accessory Resp Muscle Use
Cardiac: Regular Rhythm and S1/S2
GI: Soft, Nontender, Nondistended and Normal Bowel Sounds
Skin: Warm and Dry
Neuro: Awake and Alert
Psych: Calm and Intact Judgement/Insight (somewhat)
Data Reviewed
-
MRI: Report Reviewed by me
Labs: Labs Reviewed by me
--- NOTE | 2023-11-23 14:05 | CM ---
Placed a call to Alena, director of PHP at [facility] who stated that she needs: Demographics, psych eval, ER report, H&P, insurance information, Crisis eval. Faxed all requested documents and a CM referral over to Alena [phone]. She is going to check
patient's benefits and return call to CM.
Plan: Case management will continue to follow and assist with discharge planning. Patient hopeful for partial program.
[2023-11-23 15:38] VITALS: BP 118/68
[2023-11-23 16:20] LABS: Glucose - Point of Care 85 mg/dl (70-99)
--- NOTE | 2023-11-23 16:47 | W.PN.UPDATE ---
Update Note
Progress Note Update
Pt seen with present. Pt continues to be pressured and tangential, but is steadily improving. Pt dressed appropriately, pointing to multiple sticky notes she has on the daugherty with info about medications, positive affirmations. Pt still
mildly labile, becomes tearful at times. Pt appears to be tolerating the increased dose of Abilify with no apparent side effects. Pt concerned about how she will manage- she and usually go to [place] in December and stay for up to 6 months.
Imp: Unspecified mood d/o, likely Bipolar II d/o, with mixed sx of hypomania and depression
Rec: continue Gabapentin, increased Abilify 10 mg QD, Klonopin
Pt appears psychiatrically stable for PHP follow-up, referral in process
will follow
[2023-11-23] MEDS: LOVENOX 30 MG SC (17:47)
[2023-11-23] MEDS: GLUCOPHAGE 500 MG PO (17:47)
[2023-11-23] MEDS: ABILIFY 10 MG PO (21:14)
[2023-11-23] MEDS: NEURONTIN 600 MG PO (21:14)
[2023-11-23] MEDS: KLONOPIN 1 MG PO (21:15)
[2023-11-23 21:18] LABS: Glucose - Point of Care 111 mg/dl (70-99)
[2023-11-23 23:02] VITALS: BP 120/77
[2023-11-24] MEDS: SYNTHROID 100 MCG PO (05:51)
[2023-11-24 06:00] VITALS: BMI 18.9
[2023-11-24 07:12] VITALS: BP 123/77
[2023-11-24 07:29] LABS: Glucose - Point of Care 110 mg/dl (70-99)
[2023-11-24] MEDS: NON-FORMULARY ITEM 2 DROP BOTH EYES (08:47)
[2023-11-24] MEDS: MIRALAX 17 GRAMS PO (08:47)
[2023-11-24] MEDS: PROTONIX 40 MG PO (08:48)
[2023-11-24] MEDS: VITAMIN B1 100 MG PO (08:49)
[2023-11-24] MEDS: NON-FORMULARY ITEM 2 UNIT NASAL (08:49)
[2023-11-24] MEDS: NEURONTIN 300 MG PO (08:49)
[2023-11-24] MEDS: FOLVITE 1 MG PO (08:49)
[2023-11-24] MEDS: SINGULAIR 10 MG PO (08:51)
[2023-11-24] MEDS: KLONOPIN 0.5 MG PO (08:51)
[2023-11-24] MEDS: SALAGEN 5 MG PO (08:51)
--- NOTE | 2023-11-24 10:00 | W.PN.HOSP.TC ---
Addendum entered and electronically signed by Shanda Beck MD 11/24/23 12:43:
total DC time 37 min
Original Note:
Today's Communication/Plan
-
DC today
Assessment / Plan
Assessment / Plan
HPI: 68 yo F with PMH significant for fibromyalgia, IBS, major depression and hypothyroidism who presented to ED for evaluation of mental status change. Patient brought to ED by her family who note agitation, confusion and hyperactivity which is
very new / acute. No known recent illness, med changes, etc per family. They received a call from a different family member to check on the patient and found her in this state.
Patient was home alone. her has been out of town for approximately 24 hours. One week ago, patient was normal and was caring for grandchildren, etc.
Patient was evaluated in the ED by telepsych who felt that this did not represent a primary psychiatric issue. Medical admission was recommended.
A/P:
# Mental Status Change with sanchez / hyperactive and pressured speech
# Bipolar disorder, newly diagnosed
Note history of depression per PCP and specifically ED visit in May in [place] and recent discussion with PCP re: Psych evaluation.
Labs and imaging in the ED are unremarkable. No clear metabolic anomaly / process to explain current symptoms.
? BZD withdrawal given Rx data in PDMP and current UDS negative for benzos. Follow MSAS scale and treat with BZDs as needed for evident symptoms of withdrawal.
MRI brain unrevealing.
Appreciate psychiatry input, recommend trial of Abilify now at 10 mg at bedtime, resumed Neurontin 300 mg a.m., 600 mg at bedtime
Started on Klonopin 0.5 mg daily and 1 mg at bedtime by psychiatry as well
Do not resume Effexor. Patient declines psychiatric hospitalization, psychiatry recommends partial hospitalization/ PHP
Discharge when partial hospitalization has been arranged
# Benign essential hypertension
Blood pressure was soft, discontinued amlodipine
BP stable off med
# Hypothyroidism
s/p thyroidectomy.
TSH 2.12, FT4 at 1.99
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
# Impaired Fasting Glucose
Records indicate that patient was very recently started on metformin (10/09/23) for 'pre-diabetes'.
Resumed metformin
A1C 5.7
# Underweight, BMI 18.2
Encourage oral intake
# History of Breast Cancer s/p lumpectomy x 2 - both in 2008.
DVT Prophylaxis: Lovenox SQ
Code Status: Full
Dispo: partial program
DW CM
DW on the phone
Anticipated Discharge: Today
Subjective/Interval History
-
Date of Service: November 24, 2023
Objective Data
-
Vital Signs:
Vital Signs
Temp Pulse Resp BP Pulse Ox
36.8 C 92 17 123/77 97
11/24/23 07:12 11/24/23 07:12 11/24/23 07:12 11/24/23 07:12 11/24/23 07:12
I&O
11/23/23 11/24/23 11/25/23
06:59 06:59 06:59
Intake Total 1080 / 1080 1080 / 1080
Balance 1080 / 1080 1080 / 1080
Review of Systems
-
All other systems: Reviewed and negative
Physical Exam
-
General: Well Developed, Well Nourished, No Apparent Distress, Comfortable and Conversant; Negative Respiratory Distress
HEENT: Normocephalic, Atraumatic, Nose Appears Normal and Ears Appear Normal; Negative Oxygen
Respiratory: Clear to Auscultation and Non Labored Respirations; Negative Accessory Resp Muscle Use
Cardiac: Regular Rhythm and S1/S2
GI: Soft, Nontender, Nondistended and Normal Bowel Sounds
Skin: Warm and Dry
Neuro: Awake and Alert
Psych: Calm and Intact Judgement/Insight (somewhat)
Data Reviewed
-
MRI: Report Reviewed by me
Labs: Labs Reviewed by me
[2023-11-24 11:46] LABS: Glucose - Point of Care 119 mg/dl (70-99)
--- NOTE | 2023-11-24 12:31 | W.DCSUMMARY ---
Discharge Summary
Discharge Data
Date of Admission: 11/14/23
Date of Discharge: 11/24/23
-
Pending Results: No
Hospital Course
Principal Diagnosis:
Hailey with newly diagnosed bipolar disorder
Chronic Diagnoses:�
Hypothyroidism, continue Synthroid
History of thyroidectomy.
History of Breast Cancer status post lumpectomy x 2- both in 2008.
Fibromyalgia
Irritable bowel syndrome
Depression
Consultations:�
Psychiatry
Procedures:�
None
Clinical course:�
This is a 68-year-old female, with past medical history as stated above, who presented with mental status change with pressured speech.
Problem 1:
Hailey with newly diagnosed bipolar disorder.
Her MRI brain was unrevealing.
She was seen by psychiatrist, and was recommended to start trial of Abilify. She was discharged with Abilify 10 mg at bedtime.
She can continue Neurontin 300 mg in the morning and 600 mg at bedtime.
She can continue with her prior to admission Klonopin 0.5 mg in the morning and 1 mg at bedtime.
Per psychiatry, her prior to admission Effexor is to be discontinued
[facility]
As for the rest of her medical problems, they were stable during her hospital stay.
Discharge Plan
-
Patient Disposition: Home (Routine Discharge)
Discharge Diagnosis/Procedures: Bipolar mood disorder
Condition: Good
Diet: As tolerated
Activity: As tolerated
Driving Restrictions: Not until seen by your Dr
Referrals:
UNKNOWN - PT DOES,NOT KNOW [Family Provider] - in less than 1 week
Additional Discharge Medication Instructions: Take Abilify 10 mg at bedtime,
Take Gabapentin at 600 morning and 300 mg at night
STOP Effextor
Prescriptions:
New
aripiprazole 10 mg Tablet
10 mg PO HS Qty: 30 0RF
gabapentin 300 mg Capsule
300 mg PO DAILY Qty: 30 0RF
gabapentin 300 mg Capsule
600 mg PO HS Qty: 30 0RF
Continued
metformin 500 mg Tablet
500 mg PO QPM
levothyroxine [Synthroid] 100 mcg Tablet
100 mcg PO SUTUWETHFRSA
Rx Instructions:
TAKES AT 0600
Cequa 0.09 % Dropperette
1 drp BOTH EYES BID
azelastine 137 mcg (0.1 %) [place],Non-Aerosol
2 spray INTRANASAL DAILY
varenicline 0.03 mg/spray [place], Metered, Non-Aerosol
1 spray INTRANASAL DAILY
pilocarpine HCl 5 mg Tablet
5 mg PO TID
pantoprazole 40 mg tablet,delayed release (DR/EC)
40 mg PO DAILY
montelukast 10 mg tablet
10 mg PO DAILY
levothyroxine [Synthroid] 100 mcg tablet
150 mcg PO MO
Rx Instructions:
TAKES AT 0600
levomefolate calcium 7.5 mg tablet
7.5 mg PO DAILY
clonazepam 0.5 mg tablet
0.5 mg PO DAILY
clonazepam 0.5 mg tablet
1 mg PO HS
mometasone 50 mcg/actuation [place],Non-Aerosol
2 spray INTRANASAL BID PRN (Reason: nasal polyps/congestion)
Discontinued
gabapentin 300 mg capsule
1,200 mg PO 2200
gabapentin 300 mg capsule
600 mg PO DAILY@2330
Discharge Orders:
Discharge Patient (As Directed); Ordered 11/24/23
Ordered By: Shanda Beck
Discharge Date and Time
Print Language: MEXICAN
[2023-11-24 15:27] VITALS: BP 134/86
--- NOTE | 2023-11-24 16:15 | CM ---
Reviewed chart, spoke with attending who stated that patient is medically stable for discharge. Placed a call to Alena at [facility] who stated that fax was never received, yesterday. Refaxed all documents. Alena stated that [facility] does not take Medicare for
their partial program but they do have a program called [facility] which does take Medicare. It is a a few days a week and less hours. Spoke with patient and her spouse who were agreeable to that and patient stated that she preferred it. Patient asked if
[facility] has a van that can pick her up. Alena confirmed that there is transportation. Alena stated that patient will get a call from the director statistical programming about when patient can start. She confirmed that she received fax. Patient signed IMM. Now in
chart.
Plan: Case management will continue to follow and assist with discharge planning. Home with outpatient psych at [facility].
== END 2023-11-24 16:21 | disposition home or self-care (01) | DRG 885 ==
LOC: 3 WEST ACU 06:50
PROVIDERS: Emergency Medicine; ADMITTING PHYSICIAN Hospitalist; ATTENDING PHYSICIAN Internal Medicine; EMERGENCY PHYSICIAN Emergency Medicine; OTHER PHYSICIAN Psychiatry & Neurology Psychiatry
DX: F31.10 Bipolar disorder, current episode manic without psychotic features, unspecified (principal); Z68.1 Body mass index [BMI] 19.9 or less, adult; E89.0 Postprocedural hypothyroidism; E11.9 Type 2 diabetes mellitus without complications; K58.9 Irritable bowel syndrome, unspecified; M79.7 Fibromyalgia; R63.6 Underweight; I10 Essential (primary) hypertension; G47.00 Insomnia, unspecified; F12.90 Cannabis use, unspecified, uncomplicated; Z85.3 Personal history of malignant neoplasm of breast; Z79.899 Other long term (current) drug therapy; Z79.890 Hormone replacement therapy; Z79.84 Long term (current) use of oral hypoglycemic drugs; Z88.2 Allergy status to sulfonamides; Z91.040 Latex allergy status
CPT/HCPCS: 70450; 70553; 80053; 80143; 80179; 80306; 81003; 81015; 82077; 82248; 82962; 83036; 84439; 84443; 85025; 85027; 92610; 93005; 97161; 99284; A9575

== ENCOUNTER → 2023-12-26 10:09 | Outpatient (REF) | payer MEDICARE, BC, SELFPAY ==
[2023-12-26 11:12] LABS: Blood Urea Nitrogen 23 mg/dl (7-17); Calcium 9.2 mg/dl (8.4-10.2); Carbon Dioxide 29 mmol/L (22-30); Chloride 103 mmol/L (98-107); Glucose 102 mg/dl (70-99); Lithium 0.4 mmol/L (0.6-1.2); Potassium 4.4 mmol/L (3.5-5.1); Sodium 141 mmol/L (135-145); eGFR > 60.00
== END ==
LOC: REG 10:09
PROVIDERS: ATTENDING PHYSICIAN Registered Nurse Psychiatric/Mental Health; FAMILY PHYSICIAN Family Medicine; REFERRING PHYSICIAN Dentist Oral and Maxillofacial Surgery
DX: Z79.899 Other long term (current) drug therapy (principal)
CPT/HCPCS: 36415; 80048; 80178

== ENCOUNTER → 2024-01-02 12:18 | Outpatient (REF) | payer MEDICARE, BC, SELFPAY ==
[2024-01-02 13:01] LABS: Blood Urea Nitrogen 27 mg/dl (7-17); Calcium 9.8 mg/dl (8.4-10.2); Carbon Dioxide 29 mmol/L (22-30); Chloride 102 mmol/L (98-107); Glucose 110 mg/dl (70-99); Lithium 0.7 mmol/L (0.6-1.2); Potassium 4.4 mmol/L (3.5-5.1); Sodium 139 mmol/L (135-145); eGFR > 60.00
[2024-01-02 13:41] LABS: TSH 3.44 uIU/ml (0.47-4.68)
== END ==
LOC: OLAB 12:18
PROVIDERS: ATTENDING PHYSICIAN Registered Nurse Psychiatric/Mental Health
DX: E03.9 Hypothyroidism, unspecified (principal)
CPT/HCPCS: 80048; 80178; 84443

== ENCOUNTER → 2024-10-10 14:11 | Outpatient (REF) | payer MEDICARE, BC, SELFPAY | LOC: RAD 14:11 | PROVIDERS: ATTENDING PHYSICIAN Family Medicine | DX: M25.561 Pain in right knee (principal); M25.562 Pain in left knee; M79.644 Pain in right finger(s) | CPT/HCPCS: 73130; 73564 ==